=== PATIENT | male | born 1980 | race African-American/Black ===

== ENCOUNTER 2019-06-10 15:37 | Inpatient (IN) | payer SELFPAY ==
[2019-06-10] MEDS ORDERED: Sodium Chloride 0.9% 200 ML ONE (16:22)
[2019-06-10] MEDS ORDERED: Acetaminophen 500 MG TAB ONE (16:22)
[2019-06-10] MEDS ORDERED: Azithromycin 500 MG VIAL ONE (16:22)
[2019-06-10] MEDS ORDERED: cefTRIAXone\\ROCEPHIN 2 GM VIAL ONE (16:22)
--- NOTE | 2019-06-10 16:34 | RAD ---
TWO VIEW CHEST: HISTORY: Dyspnea. COMPARISON: 02/18/2019 FINDINGS: Mild cardiomegaly appears stable. There is a new infiltrate in the right peripheral lung and in the right lung base, obscuring portions of the right hemidiaphragm. Evidence of associated right effusio n. The left lung appears clear. IMPRESSION: Right effusion and right mid and lower lung infiltrates are noted and have occurred since the prior e xamination. POS: TPC
[2019-06-10 17:16] LABS: #Eosinphils 0.2 thou/uL (0.0-0.7); #Lymphocytes 0.7 thou/uL (1.20-3.40); #Monocytes 0.7 thou/uL (0.11-0.59); #Neutrophils 8.2 thou/uL (1.40-6.50); %Basophils 0.1 % (0.0-1.0); %Eosinophils 2.2 % (0.0-10.0); %Monocytes 6.7 % (0.0-10.0); Hemoglobin 8.7 g/dL (14.0-18.0); Mean Corpuscular HGB CONC 28.1 g/dL (32.0-36.0); Mean Corpuscular Hemoglobin 17.6 pg (27.0-31.0); Mean Corpuscular Volume 62.4 fL (78.0-98.0); Mean Platelet Volume 4.9 fL (7.4-10.4); Platelet Count 334 thou/uL (130-400); RBC Distribution Width 21.3 % (11.5-14.5); Red Blood Cell (RBC) Count 4.96 mill/uL (4.70-6.10); White Blood Cell (WBC) Count 9.8 thou/uL (4.8-10.8)
[2019-06-10 17:32] LABS: Anisocytosis MODERATE=16-30 cells (100X) (0-5/hpf); Elliptocytes SLIGHT = 2-5 cells (100X) (0-1/hpf); Hypochromia MODERATE=16-30 cells (100X) (0-5/hpf); MDiff Complete? YES; Microcytosis MODERATE=15-30 cells (100X) (0-5/hpf); Platelet Morphology Comment Appears Adequate; Polychromasia MODERATE = 3-4 cells (100X) (0-2/hpf); Reflex for Review?? YES; Schistocytes SLIGHT = 2-5 cells (100X) (0-1/hpf); Stomatocytes SLIGHT = 2-5 cells (100X) (0-1/hpf); Target Cells SLIGHT = 2-5 cells (100X) (0-1/hpf)
[2019-06-10 17:34] LABS: ALT (SGPT) 23 U/L (8-55); AST (SGOT) 24 U/L (5-34); Albumin 4.4 g/dL (3.5-5.0); Alkaline Phosphatase 87 U/L (40-150); Anion Gap 9 mmol/L (10-20); BUN (Urea Nitrogen) 6 mg/dL (8.9-20.6); Bilirubin, Total 0.7 mg/dL (0.2-1.2); Calc. Creatinine Clearance 0 mL/min (70-130); Calcium 9.5 mg/dL (7.8-10.44); Carbon Dioxide 31 mmol/L (22-29); Chloride 102 mmol/L (98-107); Estimated GFR-MDRD Greater than 90; Globulin 3.2 g/dL (2.4-3.5); Glucose 73 mg/dL (70-105); Protein, Total 7.6 g/dL (6.0-8.3); Sodium 138 mmol/L (136-145)
[2019-06-10] MEDS ORDERED: Ondansetron ODT 4 MG TAB PO PRN (20:36)
[2019-06-10] MEDS ORDERED: Ondansetron PF 4 MG/2 ML Vial IVP PRN (20:36)
[2019-06-10] MEDS: Acetaminophen 325 MG TAB PO PRN (21:30)
[2019-06-10 21:35] VITALS: BMI 42.6
[2019-06-11] MEDS: Acetaminophen 325 MG TAB PO PRN (04:40)
[2019-06-11] MEDS ORDERED: guaiFENesin 200 MG TAB PO PRN (05:01)
[2019-06-11 05:07] LABS: Anion Gap 12 mmol/L (10-20); BUN (Urea Nitrogen) 7 mg/dL (8.9-20.6); Calc. Creatinine Clearance 242 mL/min (70-130); Calcium 9.3 mg/dL (7.8-10.44); Carbon Dioxide 29 mmol/L (22-29); Chloride 100 mmol/L (98-107); Estimated GFR-MDRD Greater than 90; Glucose 91 mg/dL (70-105); Potassium 4.1 mmol/L (3.5-5.1); Sodium 137 mmol/L (136-145)
[2019-06-11] MEDS: Enoxaparin Sodium 40 MG/0.4 ML SYRINGE SC SCH (08:06)
--- NOTE | 2019-06-11 08:09 | HP ---
CODE STATUS: Full code. TIME OF EVALUATION: 8:40 p.m. CHIEF COMPLAINT: Cough. HISTORY OF PRESENT ILLNESS: A 39-year-old male patient, morbidly obese, history of sleep apnea, came to the hospital after having severe, gradually worsening shortness of breath and cough, associated with chest pain for the past 3 days, also associated with fever. Symptoms started insidiously and has been gradually getting worse. The patient has had severe episode of apnea and desaturation and for that reason, he was started on CPAP in the ED. REVIEW OF SYSTEMS: CONSTITUTIONAL: The patient has fever, chills, generalized weakness. RESPIRATORY: The patient has cough, sputum production, shortness of breath, and sleep apnea. CARDIOVASCULAR: No chest pain or palpitation. GASTROINTESTINAL: No nausea, vomiting, diarrhea, or abdominal pain. DISTRICT SALES COORDINATOR: No dizziness, headache, or feeling lightheaded. GENITOURINARY: No burning on urination. EXTREMITIES: No leg swelling. All other systems were negative except for the findings mentioned above. PAST MEDICAL HISTORY: As mentioned in the HPI. PAST SURGICAL HISTORY: No surgical history. ALLERGIES: NO KNOWN DRUG ALLERGIES. FAMILY HISTORY:Reviewed and non contributory for current presentation. REPORTED MEDICATIONS: None. PHYSICAL EXAMINATION: VITAL SIGNS: On presentation, blood pressure 155/95 with heart rate 95, respiratory rate was 23, temperature 99.4. Pain was 7/10. Oxygen saturation was 96% on room air. GENERAL: The patient is alert, oriented, not in acute distress. HEENT: Eyes, normal conjunctivae. Moist oral mucosa. Anicteric. No JVD. RESPIRATORY: Bilateral air entry is decreased, likely hard to hear due to obesity. Scattered wheezing. No rales on the left lung area. Symmetric expansion that is decreased. CARDIOVASCULAR: Normal rate, regular rhythm. No murmurs. No gallop. No edema. ABDOMEN: Soft. Normal bowel sounds. The patient is obese. MUSCULOSKELETAL: Baseline range of motion and strength. SKIN: Warm, intact. No pallor. No rash. No redness. Capillary refill seems to intact. NEURO: No evidence of any new focal weakness. Cranial nerves seems to be intact. PSYCH: The patient is in good mood. No anxiety. Optimal judgment. X-RAYS: Reviewed. The patient has right lower lobe pneumonia. LABORATORY DATA: Reviewed. The patient has white count of 9.8, hemoglobin 8.7, MCV 62, platelet count 334. Chemistry; sodium 138, potassium 4.0, chloride 102, carbon dioxide 31, anion gap 9, BUN 6, creatinine 0.8, GFR greater than 90, glucose 73, lactic acid 0.8, calcium 9.5, total bilirubin 0.7. LFTs were negative. Albumin to globulin ratio 1.4. ASSESSMENT AND PLAN: The patient will be placed in the hospital with the following medical problems. 1. Right lower lobe pneumonia seen on chest x-ray. The patient is started on antibiotics. We will follow cultures. Adjust treatment as needed. 2. Sleep apnea. The patient has severe episode of apnea with the patient has been placed on CPAP. We will continue for now. 3. Chronic microcytic anemia. We do not have previous labs. His hemoglobin is 8.7, MCV is very low. It might be due to chronic iron deficiency and might be a component of nondiagnosed thalassemia. The patient seems to be stable. This can be followed as outpatient. 4. Deep venous thrombosis prophylaxis. 5. Morbid obesity. Advised to lose weight. 6. Possible sepsis, pt had tachycardia, tachypnea, source pneumonia, treatment as above. Job ID: [id number] MTDD
--- NOTE | 2019-06-11 11:48 | PDOC.HOSPP ---
- Subjective Encounter Date: 06/11/19 Encounter Time: 08:45 Subjective: 39 y/o obese male with NILSON on CPAP treated for pneumonia about 3 months ago admitted with worsening cough and Fever associated with SOB and congestion. CXR showed right pleural effusion with infiltrates. Patient is a poor [facility]. There was a question about TB during last hospitalization at [facility]. - Objective Vital Signs & Weight: Vital Signs (12 hours) Temp Pulse Resp BP BP Pulse Ox 06/11/19 09:00 98.6 F 94 18 178/86 H 96 06/11/19 08:00 96 06/11/19 05:45 99.5 F 06/11/19 05:29 96 06/11/19 04:45 138/78 95 06/11/19 04:00 100.4 F H 96 21 H 06/11/19 00:00 99.5 F 91 21 H 140/69 98 Weight Weight 297 lb I&O: 06/10/19 06/11/19 06/12/19 06:59 06:59 06:59 Intake Total 450 Balance 450 Result Diagrams: 06/10/19 17:04 06/11/19 04:17 Additional Labs: Accuchecks 06/11/19 06/11/19 11:13 05:27 POC Glucose 119 H 98 ROS - Medication Medications: Active Medications Generic Name Dose Route Start Last Admin Trade Name Freq PRN Reason Stop Dose Admin Acetaminophen 650 mg 06/10/19 20:36 06/11/19 04:40 Tylenol PO 650 mg Q4H PRN Administration Headache/Fever/Mild Pain (1-3) Albuterol/Ipratropium 3 ml 06/10/19 21:50 06/11/19 05:29 Duoneb NEB 3 ml Q4H PRN Administration SOB/WHEEZE Enoxaparin Sodium 40 mg 06/11/19 09:00 06/11/19 08:06 Lovenox SC 40 mg 0900 TERRY Administration - Exam awake alert (morbidly obese) Eye: anicteric sclera ENT: normocephalic atraumatic, moist mucosa Neck: supple, symmetric Heart: RRR, no murmur Respiratory: no ronchi Respiratory - other findings: Fair air entry with scattered crackles both lung manley Gastrointestinal: soft, non-tender, non-distended, normal bowel sounds Gastrointestinal - other findings: Morbidly obese Extremities: no cyanosis, 1+ LE edema Extremeties - other findings: trace to mild bilateral leg edema Neurological: CN's grossly intact, no focal deficits Psychiatric: normal affect, A&O x 3 Hosp A/P (1) Pleural effusion on right Code(s): J90 - PLEURAL EFFUSION, NOT ELSEWHERE CLASSIFIED Status: Acute (2) Pneumonia Code(s): J18.9 - PNEUMONIA, UNSPECIFIED ORGANISM Status: Acute (3) Morbidly obese Code(s): E66.01 - MORBID (SEVERE) OBESITY DUE TO EXCESS CALORIES Status: Acute (4) NILSON on CPAP Code(s): G47.33 - OBSTRUCTIVE SLEEP APNEA (ADULT) (PEDIATRIC); Z99.89 - DEPENDENCE ON OTHER ENABLING MACHINES AND DEVICES Status: Acute (5) Microcytic anemia Code(s): D50.9 - IRON DEFICIENCY ANEMIA, UNSPECIFIED Status: Acute (6) 2nd degree atrioventricular block Code(s): I44.1 - ATRIOVENTRICULAR BLOCK, SECOND DEGREE Status: Acute (7) Bradycardia Code(s): R00.1 - BRADYCARDIA, UNSPECIFIED Status: Acute - Plan Continue IV antibiotics Get Iron chemistry Get BNP, troponin and echo Consult Pulmonary and Cardiology. Obr=jocelin medical record from [facility]
[2019-06-11 12:01] LABS: Iron 9 ug/dL (65-175); Iron Binding Capacity, Total 354 mcg/dL (261-462)
[2019-06-11 12:50] LABS: Troponin I 0.017 ng/mL (< 0.028)
--- NOTE | 2019-06-11 14:35 | CT ---
CT chest with IV contrast HISTORY: Chest pain. Dyspnea. Pleural fluid. FINDINGS: Only minimal fluid along the lateral aspect of the right lower chest. Adjacent pleural thic kening and scarring with mild underlying atelectasis of the lung parenchyma. Overlying this area of pleural scarring are multiple healing fractures involving the posterolateral aspect of right ribs 5 t hrough 10. No pneumothorax. Minimal scarring at the left posterolateral lung base. Heart is enlarged. No focal parenchymal lung mass. No mediastinal adenopathy. IMPRESSION: Opacity at the right lateral lung base actually represents atelectasis/scarring and pleur al thickening and/or scarring. There is only minimal fluid. Overlying healing right rib fractures. Prior trauma likely resulted in the volume loss and pleural scarring. No evidence of pneumothorax.
[2019-06-11] MEDS ORDERED: ISOVUE-370 76%-LOCM 1 ML ONE (15:48)
--- NOTE | 2019-06-11 16:37 | CON ---
DATE OF CONSULTATION: 06/11/2019 REASON FOR CONSULTATION: High-degree AV block. HISTORY OF PRESENT ILLNESS: Mr. Vargas is a pleasant 39-year-old -[place] gentleman, who comes to the hospital for shortness of breath and fevers. He was diagnosed with a right lower lobe pneumonia, started on IV antibiotics. During his stay, he was placed on a BiPAP for severe sleep apnea and he actually has been having a lot of episodes of what looks to be type 2 AV block, Mobitz type 2. These episodes have correlated with him dozing off to sleep. He denies any chest pain, tightness, or pressure. Denies any syncope or presyncope. His only issue is shortness of breath and is much better now. PAST MEDICAL HISTORY: 1. Morbid obesity. 2. Sleep apnea. 3. Type 2 diabetes versus prediabetes. OUTPATIENT MEDICATION: Metformin 5 mg b.i.d. ALLERGIES: NO KNOWN DRUG ALLERGIES. SOCIAL HISTORY: No alcohol, tobacco, or drugs. FAMILY HISTORY: Noncontributory. REVIEW OF SYSTEMS: A 12-point review of systems was done and was all negative unless stated in history of present illness. PHYSICAL EXAMINATION: VITAL SIGNS: Temperature 98.6, pulse 94, respiratory rate 18, sat 96% on room air, and blood pressure 170/86. GENERAL: Awake, alert, and oriented x3. No distress. HEENT: Normocephalic and atraumatic. NECK: Supple. LUNGS: Clear. CARDIOVASCULAR: S1 and S2. No S3 or S4. No murmurs. ABDOMEN: Soft. Positive bowel sounds. EXTREMITIES: Trace edema. SKIN: Warm and dry. LABORATORY DATA: Laboratory work was reviewed. CBC with a white count of 9, hemoglobin of 8.7, hematocrit of 30, and platelet count of 234. Chemistries are unremarkable. Iron is 9 with TIBC of 354, and percent saturation of 3, which is low. Troponin is negative x1. BNP is normal at 12. EKGs were reviewed. CT of the chest was reviewed. ASSESSMENT AND PLAN: 1. High-degree arteriovenous block. This is correlated with episodes of sleep apnea. 2. Sleep apnea. 3. Obesity. 4. Type 2 diabetes. PLAN: 1. No indication for pacemaker at this time. His episodes correlates with him dozing off falling asleep off his CPAP. 2. Most likely, if he loses weight and sleep apnea is gone, he would not have any more of these episodes. 3. Continue CPAP use. We would recommend he follow up with one of Pulmonary Critical Care to continued evaluation for his CPAP or also follow up with his primary care doctor for this. He understands verbalized understanding of this. He will do so. 4. No indication for pacemaker. Thank you for letting me take care of the patient. We will sign off. Please call with any questions. Job ID: [id number]
[2019-06-11] MEDS: cefTRIAXone\\ROCEPHIN 2 GM in Sodium Chloride 0.9% 100 ML IVPB SCH (16:57)
[2019-06-11] MEDS: Azithromycin 500 MG in Sodium Chloride 0.9% 250 ML 250 ML IVPB SCH (17:12)
--- NOTE | 2019-06-11 18:22 | CON ---
DATE OF CONSULTATION: 06/11/2019 CONSULTING PHYSICIAN: Brody Lomeli. REASON FOR CONSULTATION: Pleural effusion. HISTORY OF PRESENT ILLNESS: The patient is a 39-year-old male, who was sent to the hospital yesterday by an outlying primary care nurse practitioner. It is not clear to me if the patient was having any acute complaints at all other than presenting there for a checkup. He is very difficult to talk to. He speaks of himself in the third person. He is a very poor historian. From what I can gather sometime in the last 1 to 4 months, he was hospitalized at [facility] in [place] with a pneumonia on the right side. He had a thoracentesis performed with approximately 1 L of fluid removed. I do not have any type of records from that hospitalization. At the time of hospitalization, he was having pain on the right side. He says that pain has dissipated and he now only has an occasional cough. He also mentions that they were worried about tuberculosis, but does not expound beyond that. PAST MEDICAL HISTORY: 1. Obesity. 2. Pneumonia. PAST SURGICAL HISTORY: Thoracentesis. ALLERGIES: NONE. MEDICATIONS PRIOR TO ADMISSION: None. REVIEW OF SYSTEMS: 12-point review of systems, otherwise negative. FAMILY MEDICAL HISTORY: Unremarkable. PHYSICAL EXAMINATION: VITAL SIGNS: Temperature 98.6, has been as high as 99.5; pulse 94; respirations 18; O2 saturation 96%; and blood pressure 178/86. GENERAL: He is healthy-appearing, obese, and in no distress. HEENT: Unremarkable. NECK: No adenopathy or JVD. LUNGS: He has crackles in both bases. Slightly diminished breath sounds on the right compared to left. Very slight dullness to percussion. Anteriorly is clear. CARDIAC: S1 and S2. Regular. ABDOMEN: Obese, soft, nontender. EXTREMITIES: No clubbing, cyanosis, or edema. LABORATORY DATA: Sodium 137, potassium 4.1, chloride 100, CO2 of 29, BUN 7, creatinine 0.7, and glucose 91. White blood cell count 9.8, hematocrit 40.9, and platelet count 334. His x-ray shows a little effusion on the right. It looks like it could be loculated given how it is tracking up the right side on an upright film. ASSESSMENT: 1. Right pleural effusion-not sure the chronicity of the effusion. 2. Poor historian. 3. Question pneumonitis. PLAN: 1. We need old medical records from [facility]. 2. CT of the chest. Based on the x-ray, what I am seeing, looks a little small to intervene with thoracentesis. 3. Empiric antibiotics for the time being. 4. Check echocardiogram. Job ID: [id number]
[2019-06-12 05:02] LABS: #Eosinphils 0.2 thou/uL (0.0-0.7); #Lymphocytes 1.1 thou/uL (1.20-3.40); #Monocytes 0.7 thou/uL (0.11-0.59); #Neutrophils 2.8 thou/uL (1.40-6.50); %Basophils 0.8 % (0.0-1.0); %Eosinophils 4.1 % (0.0-10.0); %Lymphocytes 22.8 % (21.0-51.0); %Neutrophils 58.3 % (42.0-75.0); Hemoglobin 8.6 g/dL (14.0-18.0); Mean Corpuscular HGB CONC 27.7 g/dL (32.0-36.0); Mean Corpuscular Hemoglobin 17.6 pg (27.0-31.0); Mean Corpuscular Volume 63.5 fL (78.0-98.0); Platelet Count 353 thou/uL (130-400); RBC Distribution Width 20.9 % (11.5-14.5); White Blood Cell (WBC) Count 4.8 thou/uL (4.8-10.8)
[2019-06-12 05:15] LABS: Anion Gap 11 mmol/L (10-20); BUN (Urea Nitrogen) 9 mg/dL (8.9-20.6); Calc. Creatinine Clearance 236 mL/min (70-130); Calcium 8.9 mg/dL (7.8-10.44); Carbon Dioxide 31 mmol/L (22-29); Chloride 104 mmol/L (98-107); Estimated GFR-MDRD Greater than 90; Glucose 103 mg/dL (70-105); Potassium 4.2 mmol/L (3.5-5.1); Sodium 142 mmol/L (136-145)
[2019-06-12] MEDS: Enoxaparin Sodium 40 MG/0.4 ML SYRINGE SC SCH (08:47)
--- NOTE | 2019-06-12 12:12 | PRG ---
DATE OF SERVICE: 06/12/2019 SUBJECTIVE: The patient is doing well, has no complaints. Apparently, he had some issues with heart block, that is related to sleep apnea that resolves with use of CPAP. He tells me he has a CPAP at home. He had a CT of the chest yesterday, which showed some old right rib fractures and some scarring around the periphery of his right lung. An echo showed diastolic cardiac dysfunction with an EF of 50% to 55% with grade 2/3 diastolic dysfunction. OBJECTIVE: VITAL SIGNS: His O2 saturation is 96% on room air, pulse 86, blood pressure 136/73. HEENT: Unremarkable. NECK: No JVD. CHEST: Clear anteriorly bilaterally. CARDIAC: S1 and S2. Regular. ABDOMEN: Soft. EXTREMITIES: No edema. ASSESSMENT: 1. My best guess is the patient had a pleural effusion in the past after the rib fractures. There does not appear to be anything acute going on in the chest at this time. 2. Obstructive sleep apnea. 3. Heart block related to obstructive sleep apnea. 4. No evidence of pneumonia. RECOMMENDATIONS: 1. Continue CPAP use at home. 2. Needs no further workup for the pleural effusion. 3. Follow up with his primary care provider. Job ID: [id number]
--- NOTE | 2019-06-12 15:47 | PDOC.HOSPP ---
- Subjective Encounter Date: 06/12/19 Encounter Time: 15:44 Subjective: 39 y/o obese male with NILSON on CPAP treated for pneumonia about 3 months ago now admitted with worsening cough and fever associated with SOB and congestion. CXR showed right pleural effusion with infiltrates. Further evaluation showed Right healed fracture as well as lateral right lung base opacity. There was a question about TB during last hospitalization at [facility]. Patient is coughing up more sputum but otherwise reports feeling better. - Objective Vital Signs & Weight: Vital Signs (12 hours) Temp Pulse Resp BP Pulse Ox 06/12/19 12:34 98.6 F 76 20 140/86 97 06/12/19 07:45 98.6 F 86 18 136/73 96 Weight Weight 289 lb 11.2 oz I&O: 06/11/19 06/12/19 06/13/19 06:59 06:59 06:59 Intake Total 450 1320 Output Total 1300 Balance 450 20 Result Diagrams: 06/12/19 04:22 06/12/19 04:22 Additional Labs: Accuchecks 06/12/19 06/12/19 06/11/19 11:07 05:16 20:25 POC Glucose 168 H 111 H 81 06/11/19 16:44 POC Glucose 101 ROS - Medication Medications: Active Medications Generic Name Dose Route Start Last Admin Trade Name Bertrandq PRN Reason Stop Dose Admin Acetaminophen 650 mg 06/10/19 20:36 06/11/19 04:40 Tylenol PO 650 mg Q4H PRN Administration Headache/Fever/Mild Pain (1-3) Albuterol/Ipratropium 3 ml 06/10/19 21:50 06/11/19 05:29 Duoneb NEB 3 ml Q4H PRN Administration SOB/WHEEZE Enoxaparin Sodium 40 mg 06/11/19 09:00 06/12/19 08:47 Lovenox SC 40 mg 0900 TERRY Administration Ceftriaxone Sodium 2 gm/ 100 mls @ 200 mls/hr 06/11/19 17:00 06/11/19 16:57 Sodium Chloride IVPB 100 mls Q24HR TERRY Administration Azithromycin 500 mg/ Sodium 250 mls @ 250 mls/hr 06/11/19 18:00 06/11/19 17: 12 Chloride IVPB 250 mls Q24HR TERRY Administration - Exam awake alert General - other findings: obese Eye: PERRL, anicteric sclera ENT: normocephalic atraumatic, moist mucosa Neck: supple, no JVD Heart: RRR Respiratory: no ronchi Respiratory - other findings: Fair air entry with some transmitted sound bilaterally Gastrointestinal: soft, non-tender, normal bowel sounds Gastrointestinal - other findings: obese Extremities: no cyanosis Extremeties - other findings: Trace bilateral leg edema Neurological: CN's grossly intact, no focal deficits Psychiatric: normal affect, A&O x 3 Hosp A/P (1) Pneumonia Code(s): J18.9 - PNEUMONIA, UNSPECIFIED ORGANISM Status: Acute (2) Pleural effusion on right Code(s): J90 - PLEURAL EFFUSION, NOT ELSEWHERE CLASSIFIED Status: Acute (3) Morbidly obese Code(s): E66.01 - MORBID (SEVERE) OBESITY DUE TO EXCESS CALORIES Status: Acute (4) NILSON on CPAP Code(s): G47.33 - OBSTRUCTIVE SLEEP APNEA (ADULT) (PEDIATRIC); Z99.89 - DEPENDENCE ON OTHER ENABLING MACHINES AND DEVICES Status: Acute (5) Microcytic anemia Code(s): D50.9 - IRON DEFICIENCY ANEMIA, UNSPECIFIED Status: Acute (6) 2nd degree atrioventricular block Code(s): I44.1 - ATRIOVENTRICULAR BLOCK, SECOND DEGREE Status: Acute (7) Bradycardia Code(s): R00.1 - BRADYCARDIA, UNSPECIFIED Status: Acute (8) Iron deficiency anemia Code(s): D50.9 - IRON DEFICIENCY ANEMIA, UNSPECIFIED Status: Acute (9) Diabetes mellitus Code(s): E11.9 - TYPE 2 DIABETES MELLITUS WITHOUT COMPLICATIONS Status: Acute (10) Diastolic heart failure Code(s): I50.30 - UNSPECIFIED DIASTOLIC (CONGESTIVE) HEART FAILURE Status: Acute (11) Pulmonary HTN Code(s): I27.20 - PULMONARY HYPERTENSION, UNSPECIFIED Status: Acute - Plan Continue IV antibiotics Replete body iron with IV iron. Start sliding scale insulin for hyperglycemia Consult GI for iron deficiency anemia Appreciate Pulmonary and Cardiology input. Get sputum culture Awaiting medical record from [facility]
[2019-06-12] MEDS ORDERED: Dextrose 50% Abboject 50 ML SYRINGE SLOW IVP PRN (15:50)
[2019-06-12] MEDS ORDERED: Dextrose 5% in Water 1,000 ML IV PRN (15:50)
[2019-06-12] MEDS ORDERED: HumaLOG 300 UNITS/3 ML VIAL SC PRN (15:50)
[2019-06-12] MEDS: cefTRIAXone\\ROCEPHIN 2 GM in Sodium Chloride 0.9% 100 ML IVPB SCH (16:50)
[2019-06-12] MEDS: Azithromycin 500 MG in Sodium Chloride 0.9% 250 ML 250 ML IVPB SCH (19:13)
[2019-06-12] MEDS: guaiFENesin ER 600 MG TAB PO SCH (20:30)
[2019-06-13 06:59] LABS: Hemoglobin A1c 6.3 % (4.0-6.0)
[2019-06-13] MEDS ORDERED: GoLYTELY 4,000 ml Bottle PO SCH (07:45)
[2019-06-13] MEDS: Iron, Sodium Ferric Gluconate 250 MG in Sodium Chloride 0.9% 100 ML IVPB SCH (08:53)
[2019-06-13] MEDS: guaiFENesin ER 600 MG TAB PO SCH ×2 (08:54→20:01)
[2019-06-13] MEDS: Enoxaparin Sodium 40 MG/0.4 ML SYRINGE SC SCH (08:54)
[2019-06-13] MEDS ORDERED: Bisacodyl 5 MG TAB PO SCH (12:30)
--- NOTE | 2019-06-13 13:57 | PDOC.HOSPP ---
- Subjective Encounter Date: 06/13/19 Encounter Time: 09:56 Subjective: 39 y/o obese male with NILSON on CPAP treated for pneumonia about 3 months ago now admitted with worsening cough and fever associated with SOB and congestion. CXR showed right pleural effusion with infiltrates. Further evaluation with CT chest showed right healed fracture as well as lateral right lung base opacity. Still having intermittent pauses. Feeling better otherwise. - Objective Vital Signs & Weight: Vital Signs (12 hours) Temp Pulse Resp BP BP Pulse Ox 06/13/19 12:00 97.8 F 81 24 H 175/95 H 96 06/13/19 08:00 98.6 F 80 19 175/94 H 95 06/13/19 03:37 98.5 F 86 18 148/77 H 96 Weight Weight 289 lb 11.2 oz I&O: 06/12/19 06/13/19 06/14/19 06:59 06:59 06:59 Intake Total 1320 500 Output Total 1300 Balance 20 500 Result Diagrams: 06/12/19 04:22 06/12/19 04:22 Additional Labs: Accuchecks 06/13/19 06/13/19 06/12/19 12:06 05:34 20:25 POC Glucose 96 103 91 06/12/19 17:04 POC Glucose 120 H ROS - Medication Medications: Active Medications Generic Name Dose Route Start Last Admin Trade Name Freq PRN Reason Stop Dose Admin Acetaminophen 650 mg 06/10/19 20:36 06/11/19 04:40 Tylenol PO 650 mg Q4H PRN Administration Headache/Fever/Mild Pain (1-3) Albuterol/Ipratropium 3 ml 06/10/19 21:50 06/11/19 05:29 Duoneb NEB 3 ml Q4H PRN Administration SOB/WHEEZE Bisacodyl 20 mg 06/13/19 12:30 06/13/19 12:48 Dulcolax PO 06/13/19 14:30 20 mg NOW TERRY Administration Enoxaparin Sodium 40 mg 06/11/19 09:00 06/13/19 08:54 Lovenox SC 40 mg 0900 TERRY Administration Guaifenesin 600 mg 06/12/19 21:00 06/13/19 08:54 Mucinex PO 600 mg Q12HR TERRY Administration Ceftriaxone Sodium 2 gm/ 100 mls @ 200 mls/hr 06/11/19 17:00 06/12/19 16:50 Sodium Chloride IVPB 100 mls Q24HR TERRY Administration Azithromycin 500 mg/ Sodium 250 mls @ 250 mls/hr 06/11/19 18:00 06/12/19 19: 13 Chloride IVPB 250 mls Q24HR TERRY Administration Ferric Sodium Gluconate 120 mls @ 60 mls/hr 06/13/19 09:00 06/13/19 08:53 Complex 250 mg/ Sodium IVPB 06/16/19 09:01 120 mls Chloride DAILY TERRY Administration Polyethylene Glycol/Electrolytes 4,000 ml 06/13/19 07:45 06/13/19 08:29 Golytely PO 06/13/19 21:00 4,000 ml NOW TERRY Administration Sodium Chloride 10 ml 06/12/19 21:00 06/13/19 08:54 Flush - Normal Saline IVF 10 ml Q12HR TERRY Administration - Exam awake alert General - other findings: obese Eye: anicteric sclera ENT: normocephalic atraumatic Neck: supple, symmetric Heart: RRR Respiratory: no ronchi Respiratory - other findings: fair air entry with few transmitted sound. ? crackles Gastrointestinal: soft, non-tender, normal bowel sounds Gastrointestinal - other findings: obese Extremities: no cyanosis Extremeties - other findings: trace leg edema Neurological: CN's grossly intact, no focal deficits Psychiatric: normal affect, A&O x 3 Hosp A/P (1) Pneumonia Code(s): J18.9 - PNEUMONIA, UNSPECIFIED ORGANISM Status: Acute (2) Pleural effusion on right Code(s): J90 - PLEURAL EFFUSION, NOT ELSEWHERE CLASSIFIED Status: Acute (3) Morbidly obese Code(s): E66.01 - MORBID (SEVERE) OBESITY DUE TO EXCESS CALORIES Status: Acute (4) NILSON on CPAP Code(s): G47.33 - OBSTRUCTIVE SLEEP APNEA (ADULT) (PEDIATRIC); Z99.89 - DEPENDENCE ON OTHER ENABLING MACHINES AND DEVICES Status: Acute (5) Microcytic anemia Code(s): D50.9 - IRON DEFICIENCY ANEMIA, UNSPECIFIED Status: Acute (6) 2nd degree atrioventricular block Code(s): I44.1 - ATRIOVENTRICULAR BLOCK, SECOND DEGREE Status: Acute (7) Bradycardia Code(s): R00.1 - BRADYCARDIA, UNSPECIFIED Status: Acute (8) Iron deficiency anemia Code(s): D50.9 - IRON DEFICIENCY ANEMIA, UNSPECIFIED Status: Acute (9) Diabetes mellitus Code(s): E11.9 - TYPE 2 DIABETES MELLITUS WITHOUT COMPLICATIONS Status: Acute (10) Diastolic heart failure Code(s): I50.30 - UNSPECIFIED DIASTOLIC (CONGESTIVE) HEART FAILURE Status: Acute (11) Pulmonary HTN Code(s): I27.20 - PULMONARY HYPERTENSION, UNSPECIFIED Status: Acute - Plan Continue IV antibiotics Replete body iron with IV iron. For GI endoscopy today Continue sliding scale insulin for hyperglycemia Awaiting sputum culture Awaiting medical record from [facility]
[2019-06-13] MEDS ORDERED: Lidocaine Viscous Sol 2% 15 ml UD Cup ONE (14:28)
[2019-06-13] MEDS ORDERED: Ketamine 50 MG/ML (10ML VIAL) ONE (14:51)
[2019-06-13] MEDS ORDERED: Labetalol HCl 100 MG/20 ML VIAL ONE (15:47)
[2019-06-13] MEDS ORDERED: hydrALAZINE 20 MG/ML VIAL ONE (16:30)
--- NOTE | 2019-06-13 16:31 | OP ---
DATE OF PROCEDURE: 06/13/2019 OPERATIVE PROCEDURE: Esophagogastroduodenoscopy with biopsy. PREOPERATIVE DIAGNOSIS: A 39-year-old male with microcytic anemia, undergoing esophagogastroduodenoscopy. POSTOPERATIVE DIAGNOSES: Normal exam. Random biopsies obtained in the descending duodenum to rule out celiac disease. DESCRIPTION OF PROCEDURE: The patient was placed on his left lateral position and was given sedation by Anesthesia Department. A Pentax video gastroscope under direct vision passed down the oropharynx, past the GE junction into the stomach and subsequently into the descending duodenum. The mucosa appears normal throughout the upper GI tract. In the esophagus, no pathology seen. In the GE junction, no pathology seen. Retroflexion failed to show any pathology in fundus or cardia. In the gastric body, gastric antrum, no lesion seen. In the incisura angularis, no lesions. In the duodenal bulb, descending duodenum, no pathology seen. Random biopsies obtained in the descending duodenum. The stomach decompressed and the scope removed. OVERALL IMPRESSION: Although, the patient has iron deficiency anemia. Upon endoscopy, no pathology seen. RECOMMENDATIONS: 1. Iron supplement. 2. Follow up hemoglobin and hematocrit. 3. If anemia persists, consider Hematology input. Job ID: [id number]
[2019-06-13] MEDS ORDERED: PROPOFOL 200 MG/20 ML VIAL ONE (16:44)
[2019-06-13] MEDS ORDERED: Esmolol 100 MG/10 ML VIAL ONE (16:44)
[2019-06-13] MEDS ORDERED: Albuterol Sulfate HFA (OR ONLY) ONE (17:03)
[2019-06-13] MEDS: cefTRIAXone\\ROCEPHIN 2 GM in Sodium Chloride 0.9% 100 ML IVPB SCH (17:27)
[2019-06-13] MEDS: Azithromycin 500 MG in Sodium Chloride 0.9% 250 ML 250 ML IVPB SCH (17:55)
--- NOTE | 2019-06-13 22:13 | OP ---
DATE OF PROCEDURE: 06/13/2019 PROCEDURE PERFORMED: Colonoscopy. PREOPERATIVE DIAGNOSIS: A 39-year-old male with microcytic anemia, undergoing colonoscopy. POSTOPERATIVE DIAGNOSIS: Normal colonoscopy except for hemorrhoids. He had some retained stool in the right colon and also some parts of left colon. However, oral exam does not show any pathology except for hemorrhoids. DESCRIPTION OF PROCEDURE: The patient was placed on his left lateral position and was given sedation by Anesthesia Department. A rectal exam was done. A rigid scope was advanced into the rectum. No lesions were found on rectal exam. A Pentax video colonoscope was introduced into the rectum and advanced all the way to the cecum. The prep was actually very good. The mucosa appeared normal. However, he had pockets of solid stool and also what appears to be leafy material in the colon. The ileocecal area, cecum, ascending colon, no pathology. On withdrawal of scope in the cecum to ascending colon, hepatic flexure, no pathology seen. The transverse colon, splenic flexure, descending colon, sigmoid colon, no lesion seen. Rectal hemorrhoids. Job ID: [id number]
[2019-06-14 05:40] LABS: #Eosinphils 0.2 thou/uL (0.0-0.7); #Lymphocytes 1.5 thou/uL (1.20-3.40); #Monocytes 0.6 thou/uL (0.11-0.59); #Neutrophils 5.5 thou/uL (1.40-6.50); %Basophils 0.5 % (0.0-1.0); %Lymphocytes 18.5 % (21.0-51.0); %Monocytes 7.6 % (0.0-10.0); %Neutrophils 70.3 % (42.0-75.0); Hemoglobin 9.1 g/dL (14.0-18.0); Mean Corpuscular Hemoglobin 17.2 pg (27.0-31.0); Mean Corpuscular Volume 61.5 fL (78.0-98.0); Mean Platelet Volume 5.2 fL (7.4-10.4); Platelet Count 397 thou/uL (130-400); RBC Distribution Width 21.3 % (11.5-14.5); Red Blood Cell (RBC) Count 5.28 mill/uL (4.70-6.10); White Blood Cell (WBC) Count 7.8 thou/uL (4.8-10.8)
[2019-06-14 05:50] LABS: Anion Gap 15 mmol/L (10-20); BUN (Urea Nitrogen) 8 mg/dL (8.9-20.6); Calc. Creatinine Clearance 236 mL/min (70-130); Calcium 9.8 mg/dL (7.8-10.44); Carbon Dioxide 24 mmol/L (22-29); Chloride 106 mmol/L (98-107); Estimated GFR-MDRD Greater than 90; Glucose 105 mg/dL (70-105); Potassium 3.9 mmol/L (3.5-5.1); Sodium 141 mmol/L (136-145)
[2019-06-14] MEDS ORDERED: Chlorthalidone 25 MG TAB PO SCH (09:00)
[2019-06-14] MEDS: Enoxaparin Sodium 40 MG/0.4 ML SYRINGE SC SCH (09:02)
[2019-06-14] MEDS: guaiFENesin ER 600 MG TAB PO SCH (09:02)
[2019-06-14] MEDS: Iron, Sodium Ferric Gluconate 250 MG in Sodium Chloride 0.9% 100 ML IVPB SCH (11:07)
--- NOTE | 2019-06-14 11:11 | DIS ---
DATE OF ADMISSION: 06/10/2019 DATE OF DISCHARGE: 06/14/2019 PRIMARY CARE PHYSICIAN: Tin Cee. DISCHARGE DIAGNOSES: 1. Right-sided bacterial pneumonia. 2. Right-sided pleural effusion. 3. Second-degree AV block. 4. Bradycardia. 5. Morbid obesity. 6. Obstructive sleep apnea, on CPAP. 7. Iron deficiency anemia. 8. Diabetes mellitus type 2. 9. Diastolic heart failure. 10. Pulmonary hypertension. 11. Possible sepsis. present on admission. PROCEDURES PERFORMED: Esophagogastroduodenoscopy and colonoscopy. CONSULTS: 1. Gastroenterology. 2. Cardiology. 3. Pulmonology. HOSPITAL COURSE: A 39-year-old obese male with known history of obstructive sleep apnea, on CPAP; status post recent pneumonic process about 3 months ago treated at [facility], who was now admitted with worsening cough and fever associated with shortness of breath and congestion. Chest x-ray showed right pleural effusion and infiltrate. Impression of right-sided pneumonia was made and the patient was started on broad-spectrum antibiotics. Pulmonology consult was obtained and further evaluation with CT scan of the chest showed right healed fracture as well as lateral lung base opacity. Hospital course was complicated by development of AV block and bradycardia noticed on telemetry. Cardiology consult was obtained and upon review, but it was felt that this is related to obstructive sleep apnea and on CPAP mostly while the patient was asleep. No pacemaker placement was recommended rather the patient was advised to be compliant with CPAP. It was also noticed that the patient has microcytic anemia and further evaluation confirmed iron deficiency. The patient was treated with IV iron. GI consult was obtained and the patient was further evaluated with upper and lower endoscopy, which however, was negative for any pathology. The patient remained stable and was subsequently discharged to complete antibiotic therapy. Of note, the patient was noted to have pulmonary hypertension and diastolic heart dysfunction on echocardiogram obtained during this hospitalization. PHYSICAL EXAMINATION: VITAL SIGNS: Temperature 98.3, pulse 83, respiratory rate 16, SpO2 of 96% on room air, blood pressure is 142/72. GENERAL: Obese male, in no obvious distress. Afebrile. Anicteric. Acyanotic. HEENT: Normocephalic, atraumatic. Pupils are reacting to light. Oral mucosa is moist. CARDIOVASCULAR: Regular rhythm and rate with normal heart sounds 1 and 2. RESPIRATORY: Fair air entry with some transmitted sounds. No obvious rhonchi were appreciated. GI: Abdomen is obese, soft, nontender, nondistended with normal bowel sounds. EXTREMITIES: Trace bilateral leg edema noted. Distal pulses are palpable. NEUROLOGIC: Conscious, alert, oriented x3 with appropriate mental status. Cranial nerves 2 through 12 are grossly intact. The patient moves all extremities. The patient is ambulant. DISCHARGE DISPOSITION: Home. DISCHARGE CONDITION: Improved. DISCHARGE MEDICATIONS: 1. Metformin 500 mg p.o. b.i.d. with meals. 2. Guaifenesin 600 mg p.o. b.i.d. for 10 days. 3. Levofloxacin 750 mg p.o. daily for 10 days. 4. Chlorthalidone 25 mg p.o. daily. 5. Ferrous sulfate 325 mg p.o. b.i.d. 6. Lisinopril 20 mg p.o. daily. TIME SPENT: This discharge took more than 36 minutes. Job ID: [id number] MTDD
--- NOTE | 2019-06-14 11:20 | CON ---
DATE OF CONSULTATION: 06/12/2019 REASON FOR CONSULTATION: Anemia without any history of GI blood loss. HISTORY OF PRESENT ILLNESS: Dre Vargas is a very pleasant 39-year-old male, hospitalized because of mild dyspnea and also chest x-ray showing right lower lobe pneumonia. In this admission, he had been seen by Dr. Olegario Oliver for Pulmonary Service and also by Dr. Young. the patient is awake, alert, oriented. He is very comfortable. He is not in distress. He denies any chest pain or dyspnea. He has mild coughing. He states he is feeling better, he really wants to go home. The patient was found to have anemia, which is moderate. On 06/10/2019, a CBC showed hemoglobin of 8.7, hematocrit 30.9. Today, it is 8.6 and 31.1. His MCV is low at 62.4, indicative of iron deficiency. The patient has really no GI symptoms. Denies abdominal pain, nausea, or vomiting. No history of hematochezia or any melena. His bowel movements are fairly regular. He has a stool daily or every other day. He does not strain during bowel movement. The patient tells me when he wipes, he sees blood on the tissue. Otherwise, he has not had any blood in the stool. No history of any hematuria. No history of any bleeding from the gums or nose bleeding. He has no abdominal pain. He has no other GI symptoms at all. ALLERGIES: NONE. SOCIAL HISTORY: The patient is a smoker. He smokes 1/2 packet of cigarettes per day. Does not drink alcohol. MEDICAL ILLNESSES: 1. Morbid obesity. 2. Sleep apnea, on CPAP. 3. Type 2 diabetes mellitus._. 5. Recent hospital admission at [facility] in [place] and had thoracentesis done. He was told to have pneumonia at that time. 6. History of anemia . FAMILY HISTORY: Mother has COPD. _ MEDICATION LIST: Reviewed. REVIEW OF SYSTEMS: Ten-point system reviewed; CONSTITUTIONAL: No history of weight loss. No fever. No night sweats. His exercise tolerance is very good. HEENT: No chronic headache. No syncope. Eyes; no impaired vision or diplopia. Ears; no ear discharge or pain. No hearing loss. Throat; no sore throat, no dysphagia. CARDIOVASCULAR SYSTEM: History of mild chest pain, right side. History of mild coughing. No history of any fever. No dyspnea, orthopnea, or PND. GI AND : Not relevant. NEUROPSYCHIATRY: Unremarkable. ENDOCRINE: Unremarkable. PHYSICAL EXAMINATION: GENERAL: The patient is obese, appears very comfortable. He is awake, alert, and communicative. VITAL SIGNS: Afebrile. Pulse is 88, blood pressure 147/77. HEENT: Conjunctivae are clear. NECK: Supple. No adenitis or thyromegaly noted. CARDIOVASCULAR SYSTEM: First and second heart sounds are normal. LUNGS: He has scattered rhonchi in both sides. Also mild wheezing. ABDOMEN: Soft and nontender. No organomegaly or masses. Bowel sounds normal. EXTREMITIES: Reveal no edema. LABORATORY DATA: Show microcytic anemia. Hemoglobin is 8.7, hematocrit 30.9, MCV is low at 62.4, platelet count 334,000. Polymorphs 84, lymphocytes 7, monocytes 6.7. Chemistry panel, basically BMP is normal. Glucose is 103, calcium is 8.9, ferritin is 38.7, which is actually normal . X-ray shows right lower lobe infiltrate and small effusion. CLINICAL IMPRESSION: 1. A 39-year-old male with microcytic anemia. There has been reported anemia from before and he was placed on iron supplements. He has no hematochezia or melena. No history of blood loss. 2. Obesity. 3. Sleep apnea. 4. Diabetes. 5. Right pleural effusion and pneumonia, on antibiotics. RECOMMENDATION: Obtain stool for occult blood. If the occult blood comes positive, we may consider endoscopic studies. Job ID: [id number] [facility]
[2019-06-14 13:57] VITALS: BP 164/90; TEMP 98
--- NOTE | 2019-06-16 08:46 | PQF ---
[employer] Winform rosy Dobbins PATRICE CHENG [id number] CLINICAL DOCUMENTATION CLARIFICATION FORM: POST DISCHARGE Addendum to original discharge summary date: ____ Late entry note date: __ DATE: 06/16/2019 ATTN: PATRICE CHENG Please exercise your independent, professional judgment in responding to the clarification form. Clinical indicators are provided on the bottom of this form for your review Please check appropriate box(s) to clarify if the following diagnosis has been ruled in or ruled out: Sepsis (CDI/Coding list diagnosis here) [ ] Ruled in diagnosis [ ] Continue to treat [ ] Resolved [ ] Ruled out diagnosis [ ] Cannot rule out diagnosis [X ] Other diagnosis Possible sepsis [ ] Unable to determine In addition, please specify: Present on Admission (POA): [X ] Yes [ ] No [ ] Unable to determine For continuity of documentation, please document condition throughout progress notes and discharge summary. Thank You. CLINICAL INDICATORS - SIGNS / SYMPTOMS / LABS Respiration rate-23 Documented in ED physician record on 06/10/19 by MD Thomas Aaron Fever - Documented in H&P on 06/10/19 by Tony Lewis MD Right lower LobePneumonia - Documented in H&P on 06/10/19 by Tony Lewis MD Possible sepsis - Documented in H&P on 06/10/19 by Tony Lewis MD Pt had tachycardia, tachypnea - Documented in H&P on 06/10/19 by Tony Lewis MD RISK FACTORS TSecond degree AV block - Documented in Discharge summary on 06/14/19 by PATRICE CHENG Diastolic Heart failure - Documented in Discharge summary on 06/14/19 by PATRICE CHENG Pulmonary HTN - Documented in Discharge summary on 06/14/19 by PATRICE CHENG TREATMENTS The patient started antibiotics - Documented in H&P on 06/10/19 by Tony Lewis MD Continue IV antibiotics - Documented in Hospital PNs on 06/11/19 by PATRICE CHENG [employer] Winform Viewer (This form is maintained as a part of the permanent medical record) 2014 [employer]. All Rights Reserved [email or web address] [not provided] MTDD
== END 2019-06-14 14:46 | disposition home or self-care (01) | DRG 194 ==
LOC: ERS 15:37 → 2NO 20:51
PROVIDERS: ADMIT Internal Medicine; ATTEND Internal Medicine
PROC: 0DJD8ZZ Inspection of Lower Intestinal Tract, Via Natural or Artificial Opening Endoscopic (ICD-10-PCS; principal; 2019-06-13)
PROC: 0DB98ZX Excision of Duodenum, Via Natural or Artificial Opening Endoscopic, Diagnostic (ICD-10-PCS; 2019-06-13)
DX: J18.1 Lobar pneumonia, unspecified organism (principal); Z68.41 Body mass index [BMI] 40.0-44.9, adult; I50.30 Unspecified diastolic (congestive) heart failure; J91.8 Pleural effusion in other conditions classified elsewhere; E66.01 Morbid (severe) obesity due to excess calories; D50.9 Iron deficiency anemia, unspecified; G47.33 Obstructive sleep apnea (adult) (pediatric); Z99.81 Dependence on supplemental oxygen; I44.1 Atrioventricular block, second degree; Z79.84 Long term (current) use of oral hypoglycemic drugs; I27.20 Pulmonary hypertension, unspecified; K64.8 Other hemorrhoids
CPT/HCPCS: 36415; 36416; 71046; 71260; 80048; 80053; 82274; 82728; 83036; 83540; 83550; 83605; 83880; 84484; 85025; 85060; 87040; 87070; 87205; 88305; 93306; 94640; 94660; 96365; 96367; J0360; J0456; J0696; J1650; J2704; J2916; J3490; J7050; J7620; Q9966

== ENCOUNTER 2020-05-12 23:43 | Inpatient (IN) | payer SELFPAY ==
[2020-05-13 00:51] LABS: Anion Gap 18 mmol/L (10-20); BUN (Urea Nitrogen) 16 mg/dL (8.9-20.6); Calc. Creatinine Clearance 0 mL/min (70-130); Calcium 10.3 mg/dL (7.8-10.44); Carbon Dioxide 24 mmol/L (22-29); Chloride 107 mmol/L (98-107); Estimated GFR-MDRD 63; Sodium 144 mmol/L (136-145)
[2020-05-13 00:54] LABS: Glucose 716 mg/dL (70-105)
[2020-05-13] MEDS ORDERED: HUMULIN R 100 UNITS in Sodium Chloride 0.9% 100 ML IVPB SCH (01:15)
[2020-05-13] MEDS ORDERED: Ondansetron PF 4 MG/2 ML Vial IVP PRN (02:07)
[2020-05-13] MEDS ORDERED: Ondansetron ODT 4 MG TAB SL PRN (02:07)
[2020-05-13] MEDS ORDERED: Sodium Chloride 0.9% 1,000 ML IV SCH ×2 (02:07→03:46)
[2020-05-13 02:38] VITALS: BMI 38.7
--- NOTE | 2020-05-13 04:27 | HP ---
REASON FOR ADMISSION: Confusion. HISTORY OF PRESENT ILLNESS: This is a 40-year-old male patient, who presented to the emergency room, found to be confused. Then, blood work revealed a glucose level of 1600 mg/dL. He was started on an insulin drip. He was subsequently transferred to our emergency room and currently he is on IMCU. His glucose did improve and it is around 400. He is receiving aggressive fluid hydration. Patient did report to me that he is not very compliant with his insulin regimen and he reported to the nursing team that he has been eating a lot and drinking soda. I did review his records and I see that he was admitted in November and he was diagnosed with community-acquired pneumonia. PAST MEDICAL HISTORY: 1. High blood pressure. 2. Diabetes, type 2. 3. Obstructive sleep apnea, on CPAP. 4. Diastolic heart failure. 5. Iron-deficiency anemia. 6. Morbid obesity. 7. COPD. 8. Pulmonary hypertension. ALLERGIES: NO NOTE OF ANY DRUG ALLERGIES. FAMILY HISTORY: Reviewed, found to be noncontributory. REVIEW OF SYSTEMS: All systems reviewed, except the above mentioned, found to be negative. PHYSICAL EXAMINATION: GENERAL: Awake, alert, oriented, does not appear in distress, very sleepy, poor historian. VITAL SIGNS: His blood pressure is 132/92, heart rate of 102, saturating 96% on room air, and temperature is 98.1. HEENT: Head is nontraumatic, normocephalic. Pupils equal, reactive. Extraocular movements are intact. Nonicteric sclerae. Well-injected conjunctivae. Oral mucosa normal. Nasal mucosa normal. NECK: Supple. No adenopathy. No murmur. Thyroid is not palpable. Trachea is midline. No supraclavicular adenopathy. HEART: S1, S2 regular. No murmur. No gallops, friction, or rubs. No displacement of PMI. LUNGS: Clear to auscultation bilaterally. No wheezes, rhonchi, or crackles. Bowel sounds are positive. Nontender abdomen. No hepatosplenomegaly. EXTREMITIES: No lower extremity edema. No cyanosis. NEUROLOGIC: Cranial nerves 2 through 12 within normal limits. Normal motor function. Normal sensory function. Normal reflexes. LABORATORY DATA: Blood work shows a WBC of 7.3, hemoglobin of 12.5, platelets of 389, and neutrophil count %. ABG shows pH of 7.395. Sodium is 144, potassium of 5, BUN 16, creatinine 1.5. Previous creatinine was initially 2 and during his previous admission, his creatinine was 0.81. Chest x-ray shows stable appearance of chest. Brain CT shows no acute finding. ASSESSMENT AND PLAN: This is a 40-year-old male patient, who is noncompliant with his medical treatment, presents with hyperosmotic nonketotic coma like presentation. Currently, he is in the IMCU. He is receiving insulin via a drip as per our protocol. We will continue with fluid hydration, keeping in mind that he received a lot of fluids in the ER, so we will taper off his rate to around 75 mL/h. We will monitor his labs and adjust our management accordingly. For DVT prophylaxis, he will be on Lovenox. One hour of critical care time was spent to manage the patient. Job ID: [id number]
[2020-05-13 08:24] LABS: Hemoglobin 11.7 g/dL (14.0-18.0); Mean Corpuscular HGB CONC 31.1 g/dL (32.0-36.0); Mean Corpuscular Hemoglobin 20.5 pg (27.0-31.0); Mean Corpuscular Volume 66.1 fL (78.0-98.0); Mean Platelet Volume 6.4 fL (7.4-10.4); Platelet Count 322 thou/uL (130-400); RBC Distribution Width 20.4 % (11.5-14.5); Red Blood Cell (RBC) Count 5.69 mill/uL (4.70-6.10); White Blood Cell (WBC) Count 8.3 thou/uL (4.8-10.8)
[2020-05-13 08:25] LABS: Anion Gap 15 mmol/L (10-20); BUN (Urea Nitrogen) 11 mg/dL (8.9-20.6); Calc. Creatinine Clearance 147 mL/min (70-130); Calcium 9.6 mg/dL (7.8-10.44); Carbon Dioxide 29 mmol/L (22-29); Chloride 108 mmol/L (98-107); Estimated GFR-MDRD 82; Glucose 345 mg/dL (70-105); Potassium 4.2 mmol/L (3.5-5.1); Sodium 148 mmol/L (136-145)
[2020-05-13 08:42] LABS: #Lymphocytes 1.2 thou/uL (1.20-3.40); #Monocytes 0.6 thou/uL (0.11-0.59); #Neutrophils 6.5 thou/uL (1.40-6.50); %Basophils 0.5 % (0.0-1.0); %Eosinophils 0.5 % (0.0-10.0); %Monocytes 6.6 % (0.0-10.0); %Neutrophils 78.3 % (42.0-75.0); Hypochromia SLIGHT = 6-15 cells (100X) (0-5/hpf); Large Platelets SLIGHT; MDiff Complete? YES; Microcytosis MODERATE=15-30 cells (100X) (0-5/hpf); Platelet Morphology Comment Appears Adequate
[2020-05-13] MEDS: Enoxaparin Sodium 40 MG/0.4 ML SYRINGE SC SCH (09:40)
[2020-05-13] MEDS ORDERED: Acetaminophen 325 MG TAB PO PRN (10:30)
[2020-05-13] MEDS ORDERED: Dextrose 5% in Water 1,000 ML IV PRN (10:30)
[2020-05-13] MEDS ORDERED: Insulin Glargine 20 UNITS in Pre-Filled Syringe 1 EACH SC SCH (10:30)
[2020-05-13] MEDS ORDERED: Dextrose 50% Abboject 50 ML SYRINGE SLOW IVP PRN (10:30)
[2020-05-13] MEDS: Sodium Chloride 0.9% 1,000 ML IV SCH ×3 (11:18→16:05)
--- NOTE | 2020-05-13 12:49 | PDOC.HOSPP ---
- Subjective Encounter Date: 05/13/20 Encounter Time: 11:30 Subjective: no sob or abd pain no nausea now says he is compliant with meds but drinks lot of energy drinks at work - Objective Vital Signs & Weight: Vital Signs (12 hours) Temp Pulse Ox 05/13/20 12:05 99.0 F 05/13/20 08:00 98 05/13/20 07:20 98.3 F 05/13/20 03:56 98.1 F 05/13/20 02:30 96 05/13/20 02:10 98.1 F Weight Weight 278 lb 0.046 oz Most Recent Monitor Data Heart Rate from ECG 102 NIBP 152/101 NIBP BP-Mean 118 Respiration from ECG 21 SpO2 98 I&O: 05/12/20 05/13/20 05/14/20 06:59 06:59 06:59 Intake Total 1379 Output Total 900 Balance 479 Result Diagrams: 05/13/20 07:43 05/13/20 07:43 Additional Labs: Accuchecks 05/13/20 05/13/20 05/13/20 10:05 09:15 08:07 POC Glucose 292 H 277 H 296 H 05/13/20 05/13/20 05/13/20 06:58 05:58 05:10 POC Glucose 329 H 375 H 467 H 05/13/20 05/13/20 05/13/20 04:00 02:42 00:16 POC Glucose 421 H 472 H Greater than 550 H* Hospitalist ROS - Medication Medications: Active Medications Generic Name Dose Route Start Last Admin Trade Name Freq PRN Reason Stop Dose Admin Enoxaparin Sodium 40 mg 05/13/20 09:00 05/13/20 09:40 Lovenox SC 40 mg 0900 TERRY Administration Insulin Glargine 20 units/ 0.2 mls @ 0 mls/hr 05/13/20 10:30 05/13/20 11:18 Miscellaneous Medication SC 05/13/20 13:00 0.2 mls NOW TERRY Administration Sodium Chloride 1,000 mls @ 100 mls/hr 05/13/20 10:30 05/13/20 11:25 Normal Saline 0.9% IV 1,000 mls .Q10H TERRY Administration - Exam General Appearance: awake alert Eye: PERRL, anicteric sclera ENT: no oropharyngeal lesions, moist mucosa Neck: supple, no JVD Heart: RRR, no murmur Respiratory: no wheezes, no rales Gastrointestinal: soft, non-tender, non-distended, normal bowel sounds Extremities: no cyanosis, no edema Neurological: cranial nerve grossly intact, no focal deficits Hosp A/P (1) DKA (diabetic ketoacidoses) Code(s): E11.10 - TYPE 2 DIABETES MELLITUS WITH KETOACIDOSIS WITHOUT COMA Status: Resolved Qualifiers: Diabetes mellitus type: type 2 Diabetes mellitus complication detail: without coma Qualified Code(s): E11.10 - Type 2 diabetes mellitus with ketoacidosis without coma (2) DM type 2 (diabetes mellitus, type 2) Status: Chronic Qualifiers: Diabetes mellitus jail insulin use: without terminologist use (3) Morbidly obese Code(s): E66.01 - MORBID (SEVERE) OBESITY DUE TO EXCESS CALORIES Status: Chronic (4) HTN (hypertension) Code(s): I10 - ESSENTIAL (PRIMARY) HYPERTENSION Status: Chronic Qualifiers: Hypertension type: essential hypertension Qualified Code(s): I10 - Essential (primary) hypertension (5) Microcytic anemia Code(s): D50.9 - IRON DEFICIENCY ANEMIA, UNSPECIFIED Status: Chronic - Plan hemostable dc insulin drip, start lantus, humalog achs coverage continue iv fluids tx to med floor will add lisinopril for htn needs to wear cpap when asleep
[2020-05-13] MEDS: HumaLOG 300 UNITS/3 ML VIAL SC PRN ×2 (16:01→20:23)
[2020-05-13] MEDS: metFORMIN 500 MG TAB PO SCH (17:26)
[2020-05-13] MEDS: Montelukast Sodium 10 mg Tablet PO SCH (20:21)
[2020-05-13] MEDS: buPROPion HCl 100 MG TAB PO SCH (20:22)
[2020-05-13] MEDS: Melatonin 3 MG TAB PO PRN (20:28)
[2020-05-13] MEDS: Acetaminophen/Codeine 120-12MG/5 ML UDCUP PO PRN (20:28)
[2020-05-14] MEDS: Sodium Chloride 0.9% 1,000 ML IV SCH ×3 (01:34→20:41)
[2020-05-14] MEDS: HumaLOG 300 UNITS/3 ML VIAL SC PRN ×4 (05:57→20:34)
[2020-05-14 06:00] LABS: #Eosinphils 0.1 thou/uL (0.0-0.7); #Lymphocytes 1.3 thou/uL (1.20-3.40); #Monocytes 0.3 thou/uL (0.11-0.59); #Neutrophils 3.4 thou/uL (1.40-6.50); %Basophils 0.8 % (0.0-1.0); %Eosinophils 2.5 % (0.0-10.0); %Lymphocytes 25.2 % (21.0-51.0); %Monocytes 6.5 % (0.0-10.0); %Neutrophils 65.1 % (42.0-75.0); Hemoglobin 10.6 g/dL (14.0-18.0); Mean Corpuscular HGB CONC 29.9 g/dL (32.0-36.0); Mean Corpuscular Hemoglobin 20.1 pg (27.0-31.0); Mean Corpuscular Volume 67.3 fL (78.0-98.0); Mean Platelet Volume 6.5 fL (7.4-10.4); Platelet Count 189 thou/uL (130-400); RBC Distribution Width 20.8 % (11.5-14.5); Red Blood Cell (RBC) Count 5.28 mill/uL (4.70-6.10); White Blood Cell (WBC) Count 5.2 thou/uL (4.8-10.8)
[2020-05-14 06:16] LABS: Anion Gap 17 mmol/L (10-20); BUN (Urea Nitrogen) 8 mg/dL (8.9-20.6); Calc. Creatinine Clearance 186 mL/min (70-130); Calcium 8.2 mg/dL (7.8-10.44); Carbon Dioxide 21 mmol/L (22-29); Chloride 100 mmol/L (98-107); Estimated GFR-MDRD Greater than 90; Glucose 322 mg/dL (70-105); Potassium 3.8 mmol/L (3.5-5.1); Sodium 134 mmol/L (136-145)
[2020-05-14] MEDS: metFORMIN 500 MG TAB PO SCH ×2 (08:29→16:49)
[2020-05-14] MEDS: Enoxaparin Sodium 40 MG/0.4 ML SYRINGE SC SCH (08:30)
[2020-05-14] MEDS: Lisinopril 10 MG TAB PO SCH (08:30)
[2020-05-14] MEDS: buPROPion HCl 100 MG TAB PO SCH ×3 (12:01→20:33)
--- NOTE | 2020-05-14 13:40 | PDOC.HOSPP ---
- Subjective Encounter Date: 05/14/20 Encounter Time: 07:50 Subjective: awakens but sleeps off quickly is tolerating oral diet - Objective Vital Signs & Weight: Vital Signs (12 hours) Temp Pulse Resp BP BP BP Pulse Ox 05/14/20 08:30 155/107 H 05/14/20 07:58 97.9 F 90 18 155/107 H 95 05/14/20 04:19 97.8 F 85 18 120/82 96 Weight Weight 278 lb 0.046 oz Most Recent Monitor Data Heart Rate from ECG 102 NIBP 152/101 NIBP BP-Mean 118 Respiration from ECG 21 SpO2 98 I&O: 05/13/20 05/14/20 05/15/20 06:59 06:59 06:59 Intake Total 1379 4340 Output Total 900 Balance 479 4340 Result Diagrams: 05/14/20 05:43 05/14/20 05:43 Additional Labs: Accuchecks 05/14/20 05/14/20 05/13/20 11:55 05:33 19:59 POC Glucose 320 H 306 H 414 H 05/13/20 15:53 POC Glucose 374 H Hospitalist ROS - Medication Medications: Active Medications Generic Name Dose Route Start Last Admin Trade Name Freq PRN Reason Stop Dose Admin Acetaminophen/Codeine Phosphate 5 ml 05/13/20 20:09 05/13/20 20:28 Tylenol/Codeine Elixir PO 5 ml Q4H PRN Administration Cough Albuterol/Ipratropium 3 ml 05/13/20 10:30 05/13/20 18:43 Duoneb NEB 3 ml Q4H PRN Administration SOB &/or Wheezing Bupropion HCl 100 mg 05/13/20 21:00 05/14/20 12:01 Wellbutrin PO Not Given BID TERRY Enoxaparin Sodium 40 mg 05/13/20 09:00 05/14/20 08:30 Lovenox SC 40 mg 0900 TERRY Administration Sodium Chloride 1,000 mls @ 100 mls/hr 05/13/20 10:30 05/14/20 12:03 Normal Saline 0.9% IV 1,000 mls .Q10H TERRY Administration Insulin Human Lispro 0 units 05/13/20 10:30 05/14/20 11:57 Humalog SC 11 unit .AGGRESSIVE SLIDING PRN Administration Aggressive Correctional Scale Lisinopril 10 mg 05/14/20 09:00 05/14/20 08:30 Zestril PO 10 mg DAILY TERRY Administration Melatonin 3 mg 05/13/20 20:09 05/13/20 20:28 Melatonin PO 3 mg HS PRN Administration Insomnia Montelukast Sodium 10 mg 05/13/20 21:00 05/13/20 20:21 Singulair PO 10 mg QPM TERRY Administration - Exam General Appearance: awake alert Eye: PERRL, anicteric sclera ENT: no oropharyngeal lesions, dry oral mucosa Neck: supple, no JVD Heart: RRR, no murmur Respiratory: no wheezes, no rales Gastrointestinal: soft, non-tender, non-distended, normal bowel sounds Extremities: no cyanosis, no edema Neurological: cranial nerve grossly intact, no focal deficits Hosp A/P (1) DKA (diabetic ketoacidoses) Code(s): E11.10 - TYPE 2 DIABETES MELLITUS WITH KETOACIDOSIS WITHOUT COMA Status: Resolved Qualifiers: Diabetes mellitus type: type 2 Diabetes mellitus complication detail: without coma Qualified Code(s): E11.10 - Type 2 diabetes mellitus with ketoacidosis without coma (2) DM type 2 (diabetes mellitus, type 2) Status: Chronic Qualifiers: Diabetes mellitus laborer marine terminal insulin use: without laborer marine terminal use (3) Morbidly obese Code(s): E66.01 - MORBID (SEVERE) OBESITY DUE TO EXCESS CALORIES Status: Chronic (4) HTN (hypertension) Code(s): I10 - ESSENTIAL (PRIMARY) HYPERTENSION Status: Chronic Qualifiers: Hypertension type: essential hypertension Qualified Code(s): I10 - Essential (primary) hypertension (5) Microcytic anemia Code(s): D50.9 - IRON DEFICIENCY ANEMIA, UNSPECIFIED Status: Chronic - Plan hemostable is on lantus, humalog achs coverage continue iv fluids will add lisinopril for htn needs to wear cpap when asleep, have asked him to call his to bring his machine to the front so he can start using it likely has severe sleep apnea
[2020-05-14] MEDS: glipiZIDE 5 MG TAB PO SCH (16:49)
[2020-05-14] MEDS: Montelukast Sodium 10 mg Tablet PO SCH (20:33)
[2020-05-14] MEDS: Melatonin 3 MG TAB PO PRN (22:21)
[2020-05-14] MEDS: Acetaminophen/Codeine 120-12MG/5 ML UDCUP PO PRN (22:21)
[2020-05-15] MEDS: Sodium Chloride 0.9% 1,000 ML IV SCH (05:06)
[2020-05-15] MEDS: HumaLOG 300 UNITS/3 ML VIAL SC PRN ×4 (05:06→21:04)
[2020-05-15] MEDS: metFORMIN 500 MG TAB PO SCH ×2 (08:03→16:20)
[2020-05-15] MEDS: glipiZIDE 5 MG TAB PO SCH ×2 (08:03→16:19)
[2020-05-15] MEDS: buPROPion HCl 100 MG TAB PO SCH ×2 (08:03→21:03)
[2020-05-15] MEDS: Lisinopril 10 MG TAB PO SCH (08:03)
[2020-05-15] MEDS: Enoxaparin Sodium 40 MG/0.4 ML SYRINGE SC SCH (08:04)
--- NOTE | 2020-05-15 09:49 | PDOC.HOSPP ---
- Subjective Encounter Date: 05/15/20 Encounter Time: 12:00 Subjective: Patient reports some soreness of tongue and throat. No other complaints. - Objective Vital Signs & Weight: Vital Signs (12 hours) Temp Pulse Resp BP BP Pulse Ox 05/15/20 07:41 98.4 F 105 H 20 134/88 97 05/15/20 04:06 97.7 F 80 20 143/88 H 97 Weight Weight 278 lb 0.046 oz Most Recent Monitor Data Heart Rate from ECG 102 NIBP 152/101 NIBP BP-Mean 118 Respiration from ECG 21 SpO2 98 I&O: 05/14/20 05/15/20 05/16/20 06:59 06:59 06:59 Intake Total 4340 6570 Balance 4340 6570 Result Diagrams: 05/14/20 05:43 05/14/20 05:43 Additional Labs: Accuchecks 05/15/20 05/14/20 05/14/20 05:07 19:43 16:22 POC Glucose 270 H 280 H 297 H 05/14/20 11:55 POC Glucose 320 H Hospitalist ROS - Review of Systems Constitutional: denies: fever, chills Respiratory: denies: cough, shortness of breath Cardiovascular: denies: chest pain, palpitations Gastrointestinal: denies: nausea, vomiting, abdominal pain, diarrhea, constipation - Medication Medications: Active Medications Generic Name Dose Route Start Last Admin Trade Name Freq PRN Reason Stop Dose Admin Acetaminophen 650 mg 05/13/20 10:30 05/14/20 16:56 Tylenol PO 650 mg Q6H PRN Administration Pain Acetaminophen/Codeine Phosphate 5 ml 05/13/20 20:09 05/14/20 22:21 Tylenol/Codeine Elixir PO 5 ml Q4H PRN Administration Cough Albuterol/Ipratropium 3 ml 05/13/20 10:30 05/14/20 19:49 Duoneb NEB 3 ml Q4H PRN Administration SOB &/or Wheezing Bupropion HCl 100 mg 05/13/20 21:00 05/15/20 08:03 Wellbutrin PO 100 mg BID TERRY Administration Enoxaparin Sodium 40 mg 05/13/20 09:00 05/15/20 08:04 Lovenox SC 40 mg 0900 TERRY Administration Glipizide 5 mg 05/14/20 16:30 05/15/20 08:03 Glucotrol PO 5 mg BID-AC TERRY Administration Sodium Chloride 1,000 mls @ 100 mls/hr 05/13/20 10:30 05/15/20 05:06 Normal Saline 0.9% IV 1,000 mls .Q10H TERRY Administration Insulin Human Lispro 0 units 05/13/20 10:30 05/15/20 05:06 Humalog SC 9 unit .AGGRESSIVE SLIDING PRN Administration Aggressive Correctional Scale Insulin Human Lispro 0 units 05/13/20 10:30 05/14/20 20:34 Humalog SC 3 unit .BEDTIME SLIDING SC PRN Administration Bedtime Correctional Scale Lisinopril 10 mg 05/14/20 09:00 05/15/20 08:03 Zestril PO 10 mg DAILY TERRY Administration Melatonin 3 mg 05/13/20 20:09 05/14/20 22:21 Melatonin PO 3 mg HS PRN Administration Insomnia Metformin HCl 1,000 mg 05/14/20 17:00 05/15/20 08:03 Glucophage PO 1,000 mg BID-WM TERRY Administration Montelukast Sodium 10 mg 05/13/20 21:00 05/14/20 20:33 Singulair PO 10 mg QPM TERRY Administration - Exam General Appearance: NAD, awake alert ENT: moist mucosa ENT - other findings: tongue with mild irritation and some white plaque, possible thrush Heart: RRR, no murmur, no gallops, no rubs Respiratory: CTAB, no wheezes, no rales, no ronchi Gastrointestinal: soft, non-tender, non-distended, normal bowel sounds Psychiatric: normal affect, normal behavior, A&O x 3 Hosp A/P (1) Diabetes with hyperosmolar coma Code(s): E11.01 - TYPE 2 DIABETES MELLITUS WITH HYPEROSMOLARITY WITH COMA Status: Resolved (2) DM type 2 (diabetes mellitus, type 2) Status: Chronic Qualifiers: Diabetes mellitus longwall shearer operator insulin use: without longwall shearer operator use Plan: uncontrolled (3) HTN (hypertension) Code(s): I10 - ESSENTIAL (PRIMARY) HYPERTENSION Status: Chronic Qualifiers: Hypertension type: essential hypertension Qualified Code(s): I10 - Essential (primary) hypertension (4) Microcytic anemia Code(s): D50.9 - IRON DEFICIENCY ANEMIA, UNSPECIFIED Status: Chronic (5) NILSON on CPAP Code(s): G47.33 - OBSTRUCTIVE SLEEP APNEA (ADULT) (PEDIATRIC); Z99.89 - DEPENDENCE ON OTHER ENABLING MACHINES AND DEVICES Status: Chronic (6) Morbidly obese Code(s): E66.01 - MORBID (SEVERE) OBESITY DUE TO EXCESS CALORIES Status: Chronic - Plan hemostable Patient receiving over 30 units SSI Will start Lantus 25 units this morning Can d/c IV fluids added lisinopril for htn has his CPAP at bedside and much more alert this AM Will try nystatin SSW Will need work note, likely home tomorrow.
[2020-05-15] MEDS ORDERED: Insulin Glargine 25 UNITS in Pre-Filled Syringe 1 EACH SC SCH (10:00)
[2020-05-15] MEDS: Nystatin 500,000 UNITS/5 ML UDCUP SSW SCH ×3 (12:23→21:03)
[2020-05-15] MEDS ORDERED: Montelukast Sodium 10 mg Tablet PO SCH (21:00)
[2020-05-15] MEDS: Montelukast Sodium 10 mg Tablet PO SCH (21:03)
[2020-05-15] MEDS: Melatonin 3 MG TAB PO PRN (21:19)
[2020-05-15] MEDS: Acetaminophen/Codeine 120-12MG/5 ML UDCUP PO PRN (21:27)
[2020-05-16] MEDS: HumaLOG 300 UNITS/3 ML VIAL SC PRN ×2 (05:30→12:55)
[2020-05-16 07:41] VITALS: BP 124/80; TEMP 97.5
--- NOTE | 2020-05-16 08:19 | PDOC.HOSPP ---
- Subjective Encounter Date: 05/16/20 Encounter Time: 11:30 Subjective: Patient without complaint. Blood sugar still running a bit high. - Objective Vital Signs & Weight: Vital Signs (12 hours) Temp Pulse Resp BP Pulse Ox 05/16/20 07:38 97.5 F L 89 16 124/80 95 05/16/20 05:07 97.8 F 84 18 128/82 96 05/16/20 00:58 99 05/15/20 21:57 97 16 99 Weight Weight 278 lb 0.046 oz Most Recent Monitor Data Heart Rate from ECG 102 NIBP 152/101 NIBP BP-Mean 118 Respiration from ECG 21 SpO2 98 I&O: 05/15/20 05/16/20 05/17/20 06:59 06:59 06:59 Intake Total 6570 4040 Balance 6570 4040 Result Diagrams: 05/14/20 05:43 05/14/20 05:43 Additional Labs: Accuchecks 05/16/20 05/15/20 05/15/20 05:06 19:38 16:30 POC Glucose 313 H 333 H 270 H 05/15/20 11:40 POC Glucose 320 H Hospitalist ROS - Review of Systems Constitutional: denies: fever, chills Respiratory: denies: cough, shortness of breath Cardiovascular: denies: chest pain, palpitations, orthopnea Gastrointestinal: denies: nausea, vomiting, abdominal pain - Medication Medications: Active Medications Generic Name Dose Route Start Last Admin Trade Name Freq PRN Reason Stop Dose Admin Acetaminophen 650 mg 05/13/20 10:30 05/14/20 16:56 Tylenol PO 650 mg Q6H PRN Administration Pain Acetaminophen/Codeine Phosphate 5 ml 05/13/20 20:09 05/15/20 21:27 Tylenol/Codeine Elixir PO 5 ml Q4H PRN Administration Cough Albuterol/Ipratropium 3 ml 05/13/20 10:30 05/15/20 21:57 Duoneb NEB 3 ml Q4H PRN Administration SOB &/or Wheezing Bupropion HCl 100 mg 05/13/20 21:00 05/15/20 21:03 Wellbutrin PO 100 mg BID TERRY Administration Enoxaparin Sodium 40 mg 05/13/20 09:00 05/15/20 08:04 Lovenox SC 40 mg 0900 TERRY Administration Glipizide 5 mg 05/14/20 16:30 05/15/20 16:19 Glucotrol PO 5 mg BID-AC TERRY Administration Insulin Human Lispro 0 units 05/13/20 10:30 05/16/20 05:30 Humalog SC 11 unit .AGGRESSIVE SLIDING PRN Administration Aggressive Correctional Scale Insulin Human Lispro 0 units 05/13/20 10:30 05/15/20 21:04 Humalog SC 4 unit .BEDTIME SLIDING SC PRN Administration Bedtime Correctional Scale Lisinopril 10 mg 05/14/20 09:00 05/15/20 08:03 Zestril PO 10 mg DAILY TERRY Administration Melatonin 3 mg 05/13/20 20:09 05/15/20 21:19 Melatonin PO 3 mg HS PRN Administration Insomnia Metformin HCl 1,000 mg 05/14/20 17:00 05/15/20 16:20 Glucophage PO 1,000 mg BID-WM TERRY Administration Montelukast Sodium 10 mg 05/13/20 21:00 05/15/20 21:03 Singulair PO 10 mg QPM TERRY Administration Montelukast Sodium 10 mg 05/15/20 21:00 05/15/20 21:03 Singulair PO Not Given QPM TERRY Nystatin 500,000 units 05/15/20 13:00 05/15/20 21:03 Mycostatin SSW 500,000 units QID TERRY Administration - Exam General Appearance: NAD, awake alert ENT: moist mucosa Heart: RRR, no murmur, no gallops, no rubs Respiratory: CTAB, no wheezes, no rales, no ronchi Gastrointestinal: soft, non-tender, non-distended, normal bowel sounds Psychiatric: normal affect, normal behavior, A&O x 3 Hosp A/P (1) Diabetes with hyperosmolar coma Code(s): E11.01 - TYPE 2 DIABETES MELLITUS WITH HYPEROSMOLARITY WITH COMA Status: Resolved (2) DM type 2 (diabetes mellitus, type 2) Status: Chronic Qualifiers: Diabetes mellitus termite treater helper insulin use: without half-way use (3) HTN (hypertension) Code(s): I10 - ESSENTIAL (PRIMARY) HYPERTENSION Status: Chronic Qualifiers: Hypertension type: essential hypertension Qualified Code(s): I10 - Essential (primary) hypertension (4) Microcytic anemia Code(s): D50.9 - IRON DEFICIENCY ANEMIA, UNSPECIFIED Status: Chronic (5) NILSON on CPAP Code(s): G47.33 - OBSTRUCTIVE SLEEP APNEA (ADULT) (PEDIATRIC); Z99.89 - DEPENDENCE ON OTHER ENABLING MACHINES AND DEVICES Status: Chronic (6) Morbidly obese Code(s): E66.01 - MORBID (SEVERE) OBESITY DUE TO EXCESS CALORIES Status: Chronic - Plan hemostable Blood sugars elevated, will increase Lantus to 35 units qAM, diabetic teaching yesterday added lisinopril for htn has his CPAP at bedside and much more alert this AM Will try nystatin SSW Will need work note, home today.
[2020-05-16] MEDS: glipiZIDE 5 MG TAB PO SCH (08:36)
[2020-05-16] MEDS: buPROPion HCl 100 MG TAB PO SCH (08:36)
[2020-05-16] MEDS: metFORMIN 500 MG TAB PO SCH (08:37)
[2020-05-16] MEDS: Lisinopril 10 MG TAB PO SCH (08:37)
[2020-05-16] MEDS: Enoxaparin Sodium 40 MG/0.4 ML SYRINGE SC SCH (08:38)
[2020-05-16] MEDS: Nystatin 500,000 UNITS/5 ML UDCUP SSW SCH ×2 (08:38→12:05)
[2020-05-16] MEDS ORDERED: Insulin Glargine 25 UNITS in Pre-Filled Syringe 1 EACH SC SCH (09:00)
[2020-05-16] MEDS ORDERED: Insulin Glargine 35 UNITS in Pre-Filled Syringe 1 EACH SC SCH (09:00)
--- NOTE | 2020-05-16 20:39 | DIS ---
DATE OF ADMISSION: 05/13/2020 DATE OF DISCHARGE: 05/16/2020 PRIMARY CARE PHYSICIAN: Pattie Leavitt MD REASON FOR ADMISSION: Hyperosmotic nonketotic coma. DIAGNOSES AT DISCHARGE: 1. Hyperosmotic nonketotic coma, resolved. 2. Diabetes mellitus type 2, now insulin dependent. 3. Hypertension. 4. Microcytic anemia. 5. Obstructive sleep apnea, on CPAP. 6. Morbid obesity. PROCEDURES: None. CONSULTATIONS: None. SUMMARY OF HOSPITAL COURSE: This is a 40-year-old obese Afro [place] male with a history of diabetes, not compliant with his medication regimen, who has been eating lots of sweet things and drinking lots of sodas. He came with a blood sugar of 1600 and was started on insulin drip and given IV fluids. The patient had marked improvement during hospitalization and blood sugars eventually stabilized to 300s. He was put on long-acting insulin. This is being titrated up. He was given teaching on how to inject insulin and he was asymptomatic and ready to go home the day of discharge. DISCHARGE MANAGEMENT: Discharged home. ACTIVITY: As tolerated. DIET: Diabetic diet. EQUIPMENT: Supplies glucometer. Prescription given. FOLLOWUP: With Dr. Leavitt in 2 weeks. Bring a log of blood sugars checked twice a day to the appointment. DISCHARGE MEDICATIONS: 1. Glipizide 5 mg twice a day, 60 tablets dispensed. 2. Novolin 70/30 of 20 units subcutaneous twice a day, 3 vials dispensed. 3. Metformin 1000 mg twice a day, 60 tablets dispensed. 4. Nystatin swish and swallow 3 times a day, 30 mL dispensed. Job ID: [id number]
== END 2020-05-16 14:05 | disposition home or self-care (01) | DRG 638 ==
LOC: ERS 23:43 → IMCU/EMU 05-13 00:46 → T4-B 05-13 15:35
PROVIDERS: ADMIT Internal Medicine; ATTEND Internal Medicine
DX: E11.01 Type 2 diabetes mellitus with hyperosmolarity with coma (principal); I50.32 Chronic diastolic (congestive) heart failure; D50.9 Iron deficiency anemia, unspecified; E66.01 Morbid (severe) obesity due to excess calories; G47.33 Obstructive sleep apnea (adult) (pediatric); E78.5 Hyperlipidemia, unspecified; J44.9 Chronic obstructive pulmonary disease, unspecified; I11.0 Hypertensive heart disease with heart failure; E78.00 Pure hypercholesterolemia, unspecified; J02.9 Acute pharyngitis, unspecified; I27.20 Pulmonary hypertension, unspecified; Z79.84 Long term (current) use of oral hypoglycemic drugs; Z79.899 Other long term (current) drug therapy; Z99.89 Dependence on other enabling machines and devices; Z79.51 Long term (current) use of inhaled steroids; Z91.14 Patient's other noncompliance with medication regimen; Z68.38 Body mass index [BMI] 38.0-38.9, adult
CPT/HCPCS: 36415; 36416; 80048; 85025; 94640; 96365; J1650; J1815; J3490; J7620

== ENCOUNTER 2021-09-15 23:11 | Inpatient (IN) | payer BC ==
[2021-09-15 23:58] LABS: Actual Bicarbonate (HCO3a) 23.6 mEq/L (22-28); Analyzer IN Cardio ER; Base Excess (BEa) -2.4 mEq/L (-2.0 to +3.0); CO2 Tension 45.7 mmHg (35.0-45.0); Calcium, Ionized (arterial) 1.05 mmol/L (1.12-1.30); Carboxyhemoglobin (COHb) 0.2 gm% (0.0-3.0); Hemoglobin (Hb) 10.1 g/dL (14.0-18.0); O2 Tension (PaO2), arterial 155.9 mmHg (80.0-100.0); Potassium - ABG Lab 4.19 mmol/L (3.70-5.30); pH, Arterial 7.33 (7.35-7.45)
[2021-09-15 23:59] LABS: ALV-art Gradient 43.655 mmHg (0-20); Puncture Site LRA
[2021-09-16 00:28] LABS: ALT (SGPT) 56 U/L (8-55); AST (SGOT) 108 U/L (5-34); Albumin 3.7 g/dL (3.5-5.0); Alkaline Phosphatase 44 U/L (40-110); Anion Gap 17 mmol/L (10-20); BUN (Urea Nitrogen) 45 mg/dL (8.9-20.6); Bilirubin, Total 1.1 mg/dL (0.2-1.2); Calc. Creatinine Clearance 0 mL/min (70-130); Calcium 8.2 mg/dL (7.8-10.44); Carbon Dioxide 22 mmol/L (22-29); Chloride 95 mmol/L (98-107); Globulin 2.8 g/dL (2.4-3.5); Glucose 156 mg/dL (70-105); Potassium 4.5 mmol/L (3.5-5.1); Protein, Total 6.5 g/dL (6.0-8.3); Sodium 129 mmol/L (136-145)
[2021-09-16 00:42] LABS: #Basophils 0.1 thou/uL (0.0-0.2); #Lymphocytes 0.2 thou/uL (1.20-3.40); #Monocytes 0.2 thou/uL (0.11-0.59); #Neutrophils 10.3 thou/uL (1.40-6.50); %Basophils 0.5 % (0.0-1.0); %Eosinophils 0.1 % (0.0-10.0); %Lymphocytes 1.9 % (21.0-51.0); %Neutrophils 95.6 % (42.0-75.0); Anisocytosis SLIGHT = 6-15 cells (100X) (0-5/hpf); Bite Cells SLIGHT = 2-5 cells (100X) (0-1/hpf); Hemoglobin 9.3 g/dL (14.0-18.0); Hypochromia MODERATE=16-30 cells (100X) (0-5/hpf); MDiff Complete? YES; Mean Corpuscular HGB CONC 30.2 g/dL (32.0-36.0); Mean Corpuscular Hemoglobin 18.8 pg (27.0-31.0); Mean Corpuscular Volume 62.4 fL (78.0-98.0); Microcytosis MODERATE=15-30 cells (100X) (0-5/hpf); Platelet Count 271 thou/uL (130-400); Platelet Morphology Comment Appears Adequate; Polychromasia SLIGHT = 2-3 cells (100X) (0-2/hpf); RBC Distribution Width 19.3 % (11.5-14.5); Red Blood Cell (RBC) Count 4.93 mill/uL (4.70-6.10); White Blood Cell (WBC) Count 10.8 thou/uL (4.8-10.8)
[2021-09-16 00:56] LABS: CKMB 14.9 ng/mL (0-6.6)
[2021-09-16 02:48] LABS: Bacteria/HPF None Seen HPF (None Seen); Bilirubin Negative (Negative); Blood, Urine 3+ (Negative); Clarity Clear (Clear); Glucose, Urine (Dipstick) Normal (Negative); Ketone, Urine Negative (Negative); Leukocyte Negative Leu/uL (Negative); Nitrite Negative (Negative); Protein, Urine (Dipstick) 100 mg/dL (Neg-Trace); RBC/HPF 0-3 HPF (0-3); Specific Gravity, Urine 1.015 (1.002-1.036); Squamous Epithelial 0-3 HPF (0-3); Urobilinogen Normal mg/dL (Less than 2); WBC/HPF 0-3 HPF (0-3); pH, Urine 5.5 (5.0-9.0)
[2021-09-16] MEDS ORDERED: Ondansetron PF 4 MG/2 ML Vial IVP PRN (02:57)
[2021-09-16] MEDS ORDERED: Acetaminophen 325 MG TAB PO PRN (02:57)
[2021-09-16 02:58] LABS: Sodium, Urine Less than 20 mmol/L (Not Available)
[2021-09-16] MEDS ORDERED: Dextrose 5% in Water 1,000 ML IV PRN (02:59)
[2021-09-16] MEDS ORDERED: Dextrose 50% Abboject 50 ML SYRINGE SLOW IVP PRN (02:59)
[2021-09-16] MEDS ORDERED: HumaLOG 300 UNITS/3 ML VIAL SC PRN (02:59)
[2021-09-16 03:01] LABS: Urine Culture Reflex No No
[2021-09-16] MEDS ORDERED: Albuterol Sulfate 2.5 mg/3 ml Neb NEB PRN (03:01)
[2021-09-16 03:29] LABS: Troponin I 0.065 ng/mL (< 0.028)
[2021-09-16] MEDS ORDERED: Pharmacy to Dose REMDESIVIR IVPB PRN (03:35)
[2021-09-16] MEDS ORDERED: Enoxaparin Sodium 80 MG/0.8 ML SYRINGE SC SCH (03:45)
[2021-09-16 04:40] LABS: #Lymphocytes 0.2 thou/uL (1.20-3.40); #Monocytes 0.2 thou/uL (0.11-0.59); #Neutrophils 8.4 thou/uL (1.40-6.50); %Lymphocytes 2.6 % (21.0-51.0); %Monocytes 2.5 % (0.0-10.0); Hemoglobin 9.3 g/dL (14.0-18.0); Mean Corpuscular HGB CONC 29.6 g/dL (32.0-36.0); Mean Corpuscular Hemoglobin 18.6 pg (27.0-31.0); Mean Corpuscular Volume 62.7 fL (78.0-98.0); Mean Platelet Volume 5.7 fL (7.4-10.4); Platelet Count 269 thou/uL (130-400); RBC Distribution Width 19.7 % (11.5-14.5); Red Blood Cell (RBC) Count 5.02 mill/uL (4.70-6.10); White Blood Cell (WBC) Count 8.9 thou/uL (4.8-10.8)
[2021-09-16] MEDS ORDERED: Sodium Chloride 0.9% 1,000 ML IV SCH ×2 (04:45→11:23)
[2021-09-16 04:46] LABS: Phosphorus 5.6 mg/dL (2.3-4.7)
[2021-09-16 04:47] LABS: CRP (Inflammatory) 20.48 mg/dL (= or < 0.5); Magnesium 1.8 mg/dL (1.6-2.6)
[2021-09-16 04:54] LABS: Amphetamine Not Detected (NotDetected); Barbiturates Screen Not Detected (NotDetected); Benzodiazepine Screen Not Detected (NotDetected); Cocaine Metabolite Screen Not Detected (NotDetected); Methadone Not Detected (NotDetected); Methamphetamine Not Detected (NotDetected); Opiate Screen Not Detected (NotDetected); Oxycodone Screen Not Detected (NotDetected); Phencyclidine (PCP) Not Detected (NotDetected); THC/Cannabinoid Screen Not Detected (NotDetected); Tricyclic Screen Not Detected (NotDetected)
[2021-09-16 05:47] LABS: ALT (SGPT) 55 U/L (8-55); AST (SGOT) 100 U/L (5-34); Albumin 3.6 g/dL (3.5-5.0); Alkaline Phosphatase 42 U/L (40-110); Anion Gap 17 mmol/L (10-20); BUN (Urea Nitrogen) 44 mg/dL (8.9-20.6); Bilirubin, Total 0.8 mg/dL (0.2-1.2); Calc. Creatinine Clearance 0 mL/min (70-130); Calcium 8.7 mg/dL (7.8-10.44); Carbon Dioxide 21 mmol/L (22-29); Chloride 96 mmol/L (98-107); Globulin 3.4 g/dL (2.4-3.5); Glucose 262 mg/dL (70-105); Potassium 4.6 mmol/L (3.5-5.1); Sodium 129 mmol/L (136-145)
[2021-09-16 06:33] LABS: Troponin I 0.064 ng/mL (< 0.028)
[2021-09-16] MEDS: HumaLOG 300 UNITS/3 ML VIAL SC PRN ×2 (06:37→17:50)
[2021-09-16] MEDS: Ascorbic Acid 500 mg Chewable Tablet PO SCH (08:55)
[2021-09-16] MEDS: Zinc Sulfate 220 MG CAP PO SCH (08:55)
[2021-09-16] MEDS ORDERED: REMDESIVIR 200 MG in Sodium Chloride 0.9% 250 ML 210 ML IV SCH (09:00)
[2021-09-16] MEDS ORDERED: Enoxaparin Sodium 40 MG/0.4 ML SYRINGE SC SCH (09:00)
[2021-09-16] MEDS ORDERED: Dexamethasone 10 MG/ML VIAL SLOW IVP SCH (09:00)
[2021-09-16 14:53] LABS: Anion Gap 12 mmol/L (10-20); BUN (Urea Nitrogen) 36 mg/dL (8.9-20.6); CK (CPK) 3528 U/L (30-200); Calc. Creatinine Clearance 140 mL/min (70-130); Calcium 8.9 mg/dL (7.8-10.44); Carbon Dioxide 29 mmol/L (22-29); Chloride 100 mmol/L (98-107); Glucose 216 mg/dL (70-105); Potassium 4.5 mmol/L (3.5-5.1); Sodium 136 mmol/L (136-145)
[2021-09-16] MEDS ORDERED: Amlodipine 5 MG TAB PO SCH (15:30)
[2021-09-16] MEDS: Sodium Chloride 0.9% 1,000 ML IV SCH ×2 (16:52→19:45)
[2021-09-16] MEDS ORDERED: Pharmacy to Dose BARICITINIB IVPB PRN (20:46)
[2021-09-16] MEDS ORDERED: BARICITINIB 2 MG TAB PO SCH (21:00)
[2021-09-17] MEDS: HumaLOG 300 UNITS/3 ML VIAL SC PRN ×3 (01:09→11:16)
[2021-09-17 03:59] LABS: #Lymphocytes 0.6 thou/uL (1.20-3.40); #Monocytes 0.6 thou/uL (0.11-0.59); #Neutrophils 11.2 thou/uL (1.40-6.50); %Eosinophils 0.2 % (0.0-10.0); %Lymphocytes 4.6 % (21.0-51.0); %Monocytes 4.8 % (0.0-10.0); %Neutrophils 90.4 % (42.0-75.0); Hemoglobin 9.8 g/dL (14.0-18.0); Mean Corpuscular HGB CONC 29.6 g/dL (32.0-36.0); Mean Corpuscular Hemoglobin 18.9 pg (27.0-31.0); Mean Corpuscular Volume 63.7 fL (78.0-98.0); Mean Platelet Volume 5.2 fL (7.4-10.4); Platelet Count 339 thou/uL (130-400); RBC Distribution Width 19.9 % (11.5-14.5); Red Blood Cell (RBC) Count 5.18 mill/uL (4.70-6.10); White Blood Cell (WBC) Count 12.4 thou/uL (4.8-10.8)
[2021-09-17 04:18] LABS: CRP (Inflammatory) 13.32 mg/dL (= or < 0.5)
[2021-09-17 04:22] LABS: Iron 13 ug/dL (65-175); Iron Binding Capacity, Total 259 mcg/dL (261-462)
[2021-09-17 04:23] LABS: ALT (SGPT) 59 U/L (8-55); AST (SGOT) 86 U/L (5-34); Albumin 3.5 g/dL (3.5-5.0); Alkaline Phosphatase 51 U/L (40-110); Anion Gap 14 mmol/L (10-20); BUN (Urea Nitrogen) 26 mg/dL (8.9-20.6); Bilirubin, Total 0.5 mg/dL (0.2-1.2); Calc. Creatinine Clearance 184 mL/min (70-130); Carbon Dioxide 24 mmol/L (22-29); Chloride 102 mmol/L (98-107); Globulin 3.6 g/dL (2.4-3.5); Glucose 159 mg/dL (70-105); Potassium 5.1 mmol/L (3.5-5.1); Protein, Total 7.1 g/dL (6.0-8.3); Sodium 135 mmol/L (136-145)
[2021-09-17] MEDS ORDERED: NIFEdipine XL 60 MG TAB PO SCH (06:00)
[2021-09-17] MEDS: Ascorbic Acid 500 mg Chewable Tablet PO SCH (07:44)
[2021-09-17] MEDS: Enoxaparin Sodium 40 MG/0.4 ML SYRINGE SC SCH ×2 (07:44→21:30)
[2021-09-17] MEDS: Zinc Sulfate 220 MG CAP PO SCH (07:44)
[2021-09-17] MEDS ORDERED: REMDESIVIR 100 MG in Sodium Chloride 0.9% 250 ML 230 ML IV SCH (09:00)
[2021-09-17 09:21] LABS: Creatinine, Urine 120.94 mg/dL (63-166)
[2021-09-17 09:22] LABS: Protein, Urine Random Quant 113 mg/dL (1-14); Urea Nitrogen, Random Urine 694 mg/dl
[2021-09-17] MEDS ORDERED: Furosemide 40 MG/4 ML VIAL SLOW IVP SCH (14:30)
[2021-09-18 02:43] LABS: #Lymphocytes 1.2 thou/uL (1.20-3.40); #Monocytes 0.6 thou/uL (0.11-0.59); #Neutrophils 7.6 thou/uL (1.40-6.50); %Eosinophils 0.2 % (0.0-10.0); %Lymphocytes 12.8 % (21.0-51.0); %Monocytes 5.8 % (0.0-10.0); %Neutrophils 81.2 % (42.0-75.0); Hemoglobin 9.8 g/dL (14.0-18.0); Mean Corpuscular HGB CONC 29.8 g/dL (32.0-36.0); Mean Corpuscular Hemoglobin 19.2 pg (27.0-31.0); Mean Corpuscular Volume 64.2 fL (78.0-98.0); Mean Platelet Volume 5.3 fL (7.4-10.4); Platelet Count 338 thou/uL (130-400); RBC Distribution Width 20.3 % (11.5-14.5); Red Blood Cell (RBC) Count 5.11 mill/uL (4.70-6.10); White Blood Cell (WBC) Count 9.4 thou/uL (4.8-10.8)
[2021-09-18 02:56] LABS: ALT (SGPT) 56 U/L (8-55); AST (SGOT) 62 U/L (5-34); Albumin 3.4 g/dL (3.5-5.0); Alkaline Phosphatase 47 U/L (40-110); Anion Gap 13 mmol/L (10-20); BUN (Urea Nitrogen) 19 mg/dL (8.9-20.6); Bilirubin, Direct 0.2 mg/dL (0.1-0.3); Bilirubin, Total 0.5 mg/dL (0.2-1.2); Calc. Creatinine Clearance 197 mL/min (70-130); Calcium 8.6 mg/dL (7.8-10.44); Carbon Dioxide 29 mmol/L (22-29); Chloride 101 mmol/L (98-107); Glucose 220 mg/dL (70-105); Magnesium 2.3 mg/dL (1.6-2.6); Potassium 4.9 mmol/L (3.5-5.1); Protein, Total 6.8 g/dL (6.0-8.3); Sodium 138 mmol/L (136-145)
[2021-09-18] MEDS: Ascorbic Acid 500 mg Chewable Tablet PO SCH (08:03)
[2021-09-18] MEDS: Enoxaparin Sodium 40 MG/0.4 ML SYRINGE SC SCH ×2 (08:04→21:39)
[2021-09-18] MEDS: Furosemide 40 MG/4 ML VIAL SLOW IVP SCH (08:04)
[2021-09-18] MEDS: Zinc Sulfate 220 MG CAP PO SCH (08:04)
[2021-09-18] MEDS: Iron, Sodium Ferric Gluconate 250 MG in Sodium Chloride 0.9% 250 ML 250 ML IVPB SCH ×2 (08:36→21:39)
[2021-09-18] MEDS: HumaLOG 300 UNITS/3 ML VIAL SC PRN (12:14)
[2021-09-18 15:16] VITALS: BMI 40.0
[2021-09-18 22:36] LABS: Albumin 3.1 g/dL (3.5-5.0)
[2021-09-18 22:37] LABS: Calcium 8.8 mg/dL (7.8-10.44); Chloride 102 mmol/L (98-107); Potassium 4.7 mmol/L (3.5-5.1); Sodium 140 mmol/L (136-145)
[2021-09-18 22:38] LABS: Globulin 3.6 g/dL (2.4-3.5); Glucose 128 mg/dL (70-105); Protein, Total 6.7 g/dL (6.0-8.3)
[2021-09-18 22:39] LABS: Carbon Dioxide 27 mmol/L (22-29)
[2021-09-18 22:40] LABS: Bilirubin, Total 0.5 mg/dL (0.2-1.2)
[2021-09-18 22:41] LABS: Alkaline Phosphatase 50 U/L (40-110); Phosphorus 2.9 mg/dL (2.3-4.7)
[2021-09-18 22:42] LABS: BUN (Urea Nitrogen) 13 mg/dL (8.9-20.6); Calc. Creatinine Clearance 199 mL/min (70-130)
[2021-09-18 22:43] LABS: AST (SGOT) 52 U/L (5-34)
[2021-09-18 22:44] LABS: ALT (SGPT) 51 U/L (8-55); Magnesium 2.1 mg/dL (1.6-2.6)
[2021-09-18 22:47] LABS: Troponin I 0.033 ng/mL (< 0.028)
[2021-09-18 23:12] LABS: Anion Gap 16 mmol/L (10-20)
[2021-09-18] MEDS ORDERED: DOBUTamine 500 mg/250 ml 250 ML IVPB SCH (23:15)
[2021-09-19 00:05] VITALS: BP 136/82
[2021-09-19] MEDS: Benzonatate 100 MG CAP PO PRN ×2 (04:01→21:07)
[2021-09-19 04:54] LABS: Anion Gap 13 mmol/L (10-20); BUN (Urea Nitrogen) 13 mg/dL (8.9-20.6); CK (CPK) 947 U/L (30-200); Calc. Creatinine Clearance 220 mL/min (70-130); Calcium 8.8 mg/dL (7.8-10.44); Carbon Dioxide 32 mmol/L (22-29); Chloride 98 mmol/L (98-107); Glucose 140 mg/dL (70-105); Magnesium 1.9 mg/dL (1.6-2.6); Potassium 4.1 mmol/L (3.5-5.1); Sodium 139 mmol/L (136-145)
[2021-09-19] MEDS: Enoxaparin Sodium 40 MG/0.4 ML SYRINGE SC SCH ×2 (08:04→21:05)
[2021-09-19] MEDS: Furosemide 40 MG/4 ML VIAL SLOW IVP SCH (08:04)
[2021-09-19] MEDS: Zinc Sulfate 220 MG CAP PO SCH (08:04)
[2021-09-19] MEDS: Ascorbic Acid 500 mg Chewable Tablet PO SCH (08:04)
[2021-09-19] MEDS ORDERED: FLU VACC QS2021-22(6MOS UP)/PF 60 MCG/0.5 ML SYRINGE IM ONE (09:00)
[2021-09-19] MEDS ORDERED: Lisinopril 2.5 MG TAB PO SCH (09:00)
[2021-09-20] MEDS: Benzonatate 100 MG CAP PO PRN (03:34)
[2021-09-20 06:46] VITALS: TEMP 97.5
[2021-09-20] MEDS: Ascorbic Acid 500 mg Chewable Tablet PO SCH (08:08)
[2021-09-20] MEDS: Zinc Sulfate 220 MG CAP PO SCH (08:09)
[2021-09-20] MEDS: Enoxaparin Sodium 40 MG/0.4 ML SYRINGE SC SCH (08:09)
[2021-09-20] MEDS: Furosemide 40 MG/4 ML VIAL SLOW IVP SCH (08:09)
== END 2021-09-20 18:22 | disposition home or self-care (01) | DRG 871 ==
LOC: ERS 23:11 → CCU 09-16 01:41 → IMCU/EMU 09-17 17:59 → 2SW 09-18 14:25 → IMCU/EMU 09-19 02:22
PROVIDERS: ADMIT Internal Medicine; ATTEND Internal Medicine
PROC: 8E0ZXY6 Isolation (ICD-10-PCS; principal; 2021-09-16)
PROC: 3E0333Z Introduction of Anti-inflammatory into Peripheral Vein, Percutaneous Approach (ICD-10-PCS; 2021-09-16)
PROC: XW033E5 Introduction of Remdesivir Anti-infective into Peripheral Vein, Percutaneous Approach, New Technology Group 5 (ICD-10-PCS; 2021-09-16)
PROC: 5A09357 Assistance with Respiratory Ventilation, Less than 24 Consecutive Hours, Continuous Positive Airway Pressure (ICD-10-PCS; 2021-09-16)
PROC: XW0DXM6 Introduction of Baricitinib into Mouth and Pharynx, External Approach, New Technology Group 6 (ICD-10-PCS; 2021-09-18)
DX: A41.89 Other specified sepsis (principal); J96.01 Acute respiratory failure with hypoxia; U07.1 COVID-19; J12.82 Pneumonia due to coronavirus disease 2019; I50.23 Acute on chronic systolic (congestive) heart failure; N17.9 Acute kidney failure, unspecified; E87.1 Hypo-osmolality and hyponatremia; G93.40 Encephalopathy, unspecified; E87.2 Acidosis; I47.1 Supraventricular tachycardia; Z68.41 Body mass index [BMI] 40.0-44.9, adult; I42.0 Dilated cardiomyopathy; J44.0 Chronic obstructive pulmonary disease with (acute) lower respiratory infection; E78.5 Hyperlipidemia, unspecified; E78.00 Pure hypercholesterolemia, unspecified; F17.210 Nicotine dependence, cigarettes, uncomplicated; G47.33 Obstructive sleep apnea (adult) (pediatric); E66.01 Morbid (severe) obesity due to excess calories; F32.A Depression, unspecified; E11.21 Type 2 diabetes mellitus with diabetic nephropathy; E86.1 Hypovolemia; I11.0 Hypertensive heart disease with heart failure; D64.9 Anemia, unspecified; I44.1 Atrioventricular block, second degree; I49.5 Sick sinus syndrome; I27.20 Pulmonary hypertension, unspecified; Z79.4 Long term (current) use of insulin; Z79.51 Long term (current) use of inhaled steroids; Z79.899 Other long term (current) drug therapy
CPT/HCPCS: 36415; 36416; 36600; 71045; 76770; 80048; 80053; 80076; 80306; 81001; 82550; 82553; 82570; 82728; 82805; 83540; 83550; 83605; 83735; 83880; 83930; 83935; 84100; 84156; 84300; 84484; 84540; 85025; 85379; 86140; 93005; 93010; 93306; 94660; J1100; J1250; J1650; J1815; J1940; J2916; J7050

== ENCOUNTER 2021-12-25 19:00 | Outpatient (CLI) | payer BC | END 2021-12-25 19:01 | disposition home or self-care (01) | LOC: SLEEPLAB 19:00 | PROVIDERS: ATTEND Family Medicine | DX: G47.33 Obstructive sleep apnea (adult) (pediatric) (principal); R53.83 Other fatigue; R06.83 Snoring; I11.0 Hypertensive heart disease with heart failure; I50.9 Heart failure, unspecified; E11.9 Type 2 diabetes mellitus without complications; G47.00 Insomnia, unspecified; G47.10 Hypersomnia, unspecified; I49.9 Cardiac arrhythmia, unspecified; E66.9 Obesity, unspecified; Z68.42 Body mass index [BMI] 45.0-49.9, adult | CPT/HCPCS: 95811 ==

== ENCOUNTER 2023-10-25 20:34 | Inpatient (IN) | payer BC ==
[2023-10-26 02:52] VITALS: BMI 41.8
[2023-10-26] MEDS ORDERED: HumaLOG 300 UNITS/3 ML VIAL SC PRN (02:52)
[2023-10-26] MEDS ORDERED: Glucagon 1 MG/ML KIT IM PRN (02:52)
[2023-10-26] MEDS ORDERED: Ondansetron PF 4 MG/2 ML Vial IVP PRN (02:52)
[2023-10-26] MEDS ORDERED: Nitroglycerin 0.4 MG TAB (25 Tab Bottle) SL PRN (02:52)
[2023-10-26] MEDS ORDERED: Ondansetron ODT 4 MG TAB PO PRN (02:52)
[2023-10-26] MEDS ORDERED: Dextrose 5% in Water 1,000 ML IV PRN (02:52)
[2023-10-26] MEDS ORDERED: Dextrose 50% Abboject 50 ML SYRINGE SLOW IVP PRN (02:52)
[2023-10-26 06:07] LABS: #Eosinphils 0.2 thou/uL (0.0-0.7); #Monocytes 0.6 thou/uL (0.11-0.59); #Neutrophils 5.2 thou/uL (1.40-6.50); %Basophils 0.6 % (0.0-1.0); %Eosinophils 3.4 % (0.0-10.0); %Lymphocytes 14.5 % (21.0-51.0); %Monocytes 8.7 % (0.0-10.0); %Neutrophils 72.2 % (42.0-75.0); Hematocrit 32.7 % (42.0-52.0); Hemoglobin 9.6 g/dL (14.0-18.0); Mean Corpuscular HGB CONC 29.4 g/dL (32.0-36.0); Mean Corpuscular Hemoglobin 20.1 pg (27.0-31.0); Mean Corpuscular Volume 68.4 fl (78.0-98.0); Mean Platelet Volume 9.4 fL (7.4-10.4); Platelet Count 308 10x3/uL (130-400); RBC Distribution Width 19.6 % (11.5-14.5); Red Blood Cell (RBC) Count 4.78 mill/uL (4.70-6.10); White Blood Cell (WBC) Count 7.1 10x3/uL (4.8-10.8)
[2023-10-26 06:17] LABS: Hemoglobin A1c 11.9 % (4.0-6.0)
[2023-10-26 06:28] LABS: Anion Gap 15 mmol/L (10-20); BUN (Urea Nitrogen) 18 mg/dL (8.9-20.6); Calc. Creatinine Clearance 136 mL/min (70-130); Calcium 8.7 mg/dL (7.8-10.44); Carbon Dioxide 25 mmol/L (22-29); Chloride 99 mmol/L (98-107); Estimated GFR 68; Glucose 233 mg/dL (70-105); Iron 18 ug/dL (65-175); Iron Binding Capacity, Total 338 mcg/dL (261-462); Magnesium 1.8 mg/dL (1.6-2.6); Sodium 135 mmol/L (136-145)
[2023-10-26 06:30] LABS: Iron 21 ug/dL (65-175); Iron Binding Capacity, Total 335 mcg/dL (261-462)
[2023-10-26] MEDS: Ipratropium Bromide 2.5 ml Neb NEB SCH ×3 (08:17→19:37)
[2023-10-26] MEDS: Aspirin Chewable 81 MG TAB PO SCH (10:55)
[2023-10-26] MEDS: buPROPion HCl 100 MG TAB PO SCH ×2 (10:55→20:04)
[2023-10-26] MEDS: Insulin Glargine 30 UNITS/0.3 ML VIAL SC SCH (10:56)
[2023-10-26] MEDS: Enoxaparin 30 MG (0.3 mL) SYRINGE SC SCH ×2 (10:57→23:21)
[2023-10-26] MEDS: Enoxaparin 100 MG (1 mL) SYRINGE SC SCH ×2 (10:58→23:21)
[2023-10-26] MEDS: HumaLOG 300 UNITS/3 ML VIAL SC PRN (14:07)
[2023-10-26] MEDS ORDERED: Amiodarone 450 MG, Admixture Fee 1 EACH in Dextrose 5% in Water 250 ML IVPB SCH (16:00)
[2023-10-26] MEDS: Simvastatin 10 MG TAB PO SCH (20:04)
[2023-10-27] MEDS: Ipratropium Bromide 2.5 ml Neb NEB SCH ×4 (00:32→19:50)
[2023-10-27] MEDS: HumaLOG 300 UNITS/3 ML VIAL SC PRN ×2 (07:11→12:55)
[2023-10-27 07:24] LABS: Hematocrit 35.1 % (42.0-52.0); Hemoglobin 10.1 g/dL (14.0-18.0); Platelet Count 288 10x3/uL (130-400)
[2023-10-27] MEDS: buPROPion HCl 100 MG TAB PO SCH ×2 (08:49→21:35)
[2023-10-27] MEDS: Torsemide 20 MG TAB PO SCH (08:50)
[2023-10-27] MEDS: Aspirin Chewable 81 MG TAB PO SCH (08:50)
[2023-10-27] MEDS: Insulin Glargine 30 UNITS/0.3 ML VIAL SC SCH (08:50)
[2023-10-27] MEDS: Enoxaparin 30 MG (0.3 mL) SYRINGE SC SCH (10:53)
[2023-10-27] MEDS: Enoxaparin 100 MG (1 mL) SYRINGE SC SCH (10:53)
[2023-10-27] MEDS: Simvastatin 10 MG TAB PO SCH (21:36)
[2023-10-28] MEDS: Ipratropium Bromide 2.5 ml Neb NEB SCH ×5 (01:08→23:21)
[2023-10-28] MEDS: buPROPion HCl 100 MG TAB PO SCH ×2 (08:58→20:10)
[2023-10-28] MEDS: Insulin Glargine 30 UNITS/0.3 ML VIAL SC SCH (08:59)
[2023-10-28] MEDS: Aspirin Chewable 81 MG TAB PO SCH (08:59)
[2023-10-28] MEDS: Torsemide 20 MG TAB PO SCH (08:59)
[2023-10-28] MEDS: HumaLOG 300 UNITS/3 ML VIAL SC PRN (11:59)
[2023-10-28] MEDS: Simvastatin 10 MG TAB PO SCH (20:10)
[2023-10-29 06:59] LABS: #Eosinphils 0.3 thou/uL (0.0-0.7); #Monocytes 0.6 thou/uL (0.11-0.59); #Neutrophils 4.2 thou/uL (1.40-6.50); %Basophils 0.7 % (0.0-1.0); %Eosinophils 4.3 % (0.0-10.0); %Lymphocytes 15.1 % (21.0-51.0); %Monocytes 9.4 % (0.0-10.0); Hematocrit 35.6 % (42.0-52.0); Hemoglobin 10.1 g/dL (14.0-18.0); Mean Corpuscular HGB CONC 28.4 g/dL (32.0-36.0); Mean Corpuscular Hemoglobin 19.4 pg (27.0-31.0); Mean Corpuscular Volume 68.5 fl (78.0-98.0); Mean Platelet Volume 9.1 fL (7.4-10.4); Platelet Count 286 10x3/uL (130-400); RBC Distribution Width 20.4 % (11.5-14.5)
[2023-10-29] MEDS: Ipratropium Bromide 2.5 ml Neb NEB SCH ×4 (07:16→23:16)
[2023-10-29 07:25] LABS: ALT (SGPT) 32 U/L (8-55); AST (SGOT) 21 U/L (5-34); Alkaline Phosphatase 66 U/L (40-110); Anion Gap 15 mmol/L (10-20); BUN (Urea Nitrogen) 18 mg/dL (8.9-20.6); Bilirubin, Total 1.1 mg/dL (0.2-1.2); Calc. Creatinine Clearance 133 mL/min (70-130); Calcium 8.9 mg/dL (7.8-10.44); Carbon Dioxide 28 mmol/L (22-29); Chloride 95 mmol/L (98-107); Estimated GFR 68; Globulin 3.1 g/dL (2.4-3.5); Glucose 197 mg/dL (70-105); Potassium 3.8 mmol/L (3.5-5.1); Protein, Total 7.1 g/dL (6.0-8.3); Sodium 134 mmol/L (136-145)
[2023-10-29] MEDS: Insulin Glargine 30 UNITS/0.3 ML VIAL SC SCH (08:18)
[2023-10-29] MEDS: Aspirin Chewable 81 MG TAB PO SCH (08:18)
[2023-10-29] MEDS: buPROPion HCl 100 MG TAB PO SCH ×2 (08:18→21:20)
[2023-10-29] MEDS: Torsemide 20 MG TAB PO SCH (08:18)
[2023-10-29 08:26] LABS: Hypochromia SLIGHT = 6-15 cells (100X) (0-5/hpf); Ovalocytes SLIGHT = 2-5 cells (100X) (0-1/hpf); Polychromasia SLIGHT = 2-3 cells (100X) (0-2/hpf)
[2023-10-29] MEDS: HumaLOG 300 UNITS/3 ML VIAL SC PRN (18:04)
[2023-10-29] MEDS: Simvastatin 10 MG TAB PO SCH (21:19)
[2023-10-29] MEDS: Enoxaparin 100 MG (1 mL) SYRINGE SC SCH (21:20)
[2023-10-29] MEDS: Enoxaparin 30 MG (0.3 mL) SYRINGE SC SCH (21:21)
[2023-10-30] MEDS: Ipratropium Bromide 2.5 ml Neb NEB SCH ×3 (07:36→21:35)
[2023-10-30] MEDS: Torsemide 20 MG TAB PO SCH (10:00)
[2023-10-30] MEDS: Aspirin Chewable 81 MG TAB PO SCH (10:00)
[2023-10-30] MEDS: buPROPion HCl 100 MG TAB PO SCH ×2 (10:02→21:38)
[2023-10-30 11:44] LABS: Anion Gap 15 mmol/L (10-20); BUN (Urea Nitrogen) 17 mg/dL (8.9-20.6); Calc. Creatinine Clearance 121 mL/min (70-130); Calcium 9.2 mg/dL (7.8-10.44); Carbon Dioxide 27 mmol/L (22-29); Chloride 96 mmol/L (98-107); Estimated GFR 61; Glucose 192 mg/dL (70-105); Potassium 4.3 mmol/L (3.5-5.1); Sodium 134 mmol/L (136-145)
[2023-10-30] MEDS ORDERED: PROPOFOL 200 MG/20 ML VIAL ONE (12:28)
[2023-10-30] MEDS ORDERED: Lidocaine 1% PF 5 ML VIAL ONE (12:28)
[2023-10-30] MEDS: Insulin Glargine 30 UNITS/0.3 ML VIAL SC SCH (13:31)
[2023-10-30] MEDS: Enoxaparin 100 MG (1 mL) SYRINGE SC SCH (13:32)
[2023-10-30] MEDS: Enoxaparin 30 MG (0.3 mL) SYRINGE SC SCH (13:32)
[2023-10-30] MEDS: Dronedarone HCl 400 MG TAB PO SCH (16:25)
[2023-10-30] MEDS: Apixaban 5 MG TAB PO SCH (21:36)
[2023-10-30] MEDS: Simvastatin 10 MG TAB PO SCH (21:38)
[2023-10-31] MEDS: Ipratropium Bromide 2.5 ml Neb NEB SCH ×2 (02:15→08:11)
[2023-10-31] MEDS: Insulin Glargine 30 UNITS/0.3 ML VIAL SC SCH (08:52)
[2023-10-31] MEDS: Apixaban 5 MG TAB PO SCH (08:52)
[2023-10-31] MEDS: Aspirin Chewable 81 MG TAB PO SCH (08:53)
[2023-10-31] MEDS: Torsemide 20 MG TAB PO SCH (08:53)
[2023-10-31] MEDS: Dronedarone HCl 400 MG TAB PO SCH (08:56)
[2023-10-31] MEDS: buPROPion HCl 100 MG TAB PO SCH (09:01)
[2023-10-31 12:13] VITALS: BP 126/55; TEMP 98.6
== END 2023-10-31 14:18 | disposition home or self-care (01) | DRG 308 ==
LOC: 2SW 10-26 01:58 → OBSVTOIN 10-26 11:40
PROVIDERS: ADMIT Internal Medicine; ATTEND Internal Medicine
PROC: 5A09357 Assistance with Respiratory Ventilation, Less than 24 Consecutive Hours, Continuous Positive Airway Pressure (ICD-10-PCS; 2023-10-26)
PROC: B244ZZ4 Ultrasonography of Right Heart, Transesophageal (ICD-10-PCS; principal; 2023-10-30)
PROC: 5A2204Z Restoration of Cardiac Rhythm, Single (ICD-10-PCS; 2023-10-30)
DX: I48.92 Unspecified atrial flutter (principal); I50.33 Acute on chronic diastolic (congestive) heart failure; I13.0 Hypertensive heart and chronic kidney disease with heart failure and stage 1 through stage 4 chronic kidney disease, or unspecified chronic kidney disease; Z68.41 Body mass index [BMI] 40.0-44.9, adult; I42.0 Dilated cardiomyopathy; J44.9 Chronic obstructive pulmonary disease, unspecified; I45.10 Unspecified right bundle-branch block; I95.9 Hypotension, unspecified; E11.65 Type 2 diabetes mellitus with hyperglycemia; D50.9 Iron deficiency anemia, unspecified; N18.9 Chronic kidney disease, unspecified; I35.8 Other nonrheumatic aortic valve disorders; E11.22 Type 2 diabetes mellitus with diabetic chronic kidney disease; I44.1 Atrioventricular block, second degree; G47.33 Obstructive sleep apnea (adult) (pediatric); E66.01 Morbid (severe) obesity due to excess calories; Z79.4 Long term (current) use of insulin; Z88.1 Allergy status to other antibiotic agents; Z79.82 Long term (current) use of aspirin; Z79.2 Long term (current) use of antibiotics; Z79.899 Other long term (current) drug therapy; Z87.891 Personal history of nicotine dependence; Z99.89 Dependence on other enabling machines and devices; Z86.16 Personal history of COVID-19; Z71.84 Encounter for health counseling related to travel; Z79.01 Long term (current) use of anticoagulants
CPT/HCPCS: 36415; 36416; 80048; 80053; 82565; 82728; 83036; 83540; 83550; 83735; 84484; 85014; 85018; 85025; 85049; 92960; 93005; 93010; 93306; 93312; 94640; 94660; 96372; G0378; J0282; J1650; J1815; J2704; J7070

== ENCOUNTER 2024-05-31 06:01 | Day surgery (SDC) | payer BC ==
[2024-05-28 15:20] VITALS: BMI 43.4
[2024-05-31] MEDS ORDERED: Heparin 10,000 UNITS/ 10 ML VIAL ONE (06:34)
[2024-05-31 06:58] LABS: #Basophils 0.04 10x3/uL (0.0-0.2); %Basophils 0.7 % (0.0-1.0); %Lymphocytes 15.9 % (21.0-51.0); %Monocytes 10.5 % (0.0-10.0); %Neutrophils 68.4 % (42.0-75.0); Hematocrit 34.5 % (42.0-52.0); Hemoglobin 9.6 g/dL (14.0-18.0); Mean Corpuscular HGB CONC 27.8 g/dL (32.0-36.0); Mean Corpuscular Hemoglobin 17.5 pg (27.0-31.0); Mean Corpuscular Volume 62.7 fL (78.0-98.0); Mean Platelet Volume 8.9 fL (7.4-10.4); Platelet Count 320 10x3/uL (130-400); RBC Distribution Width 22.3 % (11.5-14.5)
[2024-05-31 07:06] LABS: Prothrombin Time 12.9 sec (12.0-14.7)
[2024-05-31 07:07] LABS: PTT 28.2 sec (22.9-36.1)
[2024-05-31 07:26] LABS: Anion Gap 15 mmol/L (10-20); BUN (Urea Nitrogen) 8 mg/dL (8.9-20.6); Calc. Creatinine Clearance 201 mL/min (70-130); Calcium 9.4 mg/dL (7.8-10.44); Carbon Dioxide 24 mmol/L (22-29); Chloride 100 mmol/L (98-107); Estimated GFR 106; Glucose 179 mg/dL (70-105); Potassium 4.1 mmol/L (3.5-5.1); Sodium 135 mmol/L (136-145)
[2024-05-31 07:40] LABS: Hypochromia SLIGHT = 6-15 cells HPF (0-5); Platelet Adequacy Comment Platelets Normal; Polychromasia SLIGHT = 2-3 cells HPF (0-2)
[2024-05-31] MEDS ORDERED: Isoproterenol 0.2 MG/1 ML AMP ONE (08:42)
[2024-05-31] MEDS ORDERED: Lidocaine 1% PF 5 ML VIAL ONE (09:02)
[2024-05-31] MEDS ORDERED: NEOSTIGMINE 3 MG/3 ML SYRINGE ONE (09:02)
[2024-05-31] MEDS ORDERED: Rocuronium Bromide 10 MG/ML (10ML VIAL) ONE (09:02)
[2024-05-31] MEDS ORDERED: Glycopyrrolate 0.2 MG/ML 5 ML SYRINGE ONE (09:02)
[2024-05-31] MEDS ORDERED: ePHEDrine Sulfate 50 MG/10 ML VIAL ONE (09:02)
[2024-05-31] MEDS ORDERED: PROPOFOL 200 MG/20 ML VIAL ONE (09:02)
[2024-05-31] MEDS ORDERED: Phenylephrine 40 MG/NS 250 ML 250 ML ONE (09:51)
[2024-05-31] MEDS ORDERED: DOBUTamine 250 MG/20 ML VIAL ONE (10:46)
[2024-05-31] MEDS ORDERED: DOPamine 400 MG/D5W 250 ML 250 ML ONE (10:47)
== END 2024-05-31 15:50 | disposition home or self-care (01) ==
LOC: SDC 06:01
PROVIDERS: ATTEND Internal Medicine Cardiovascular Disease
PROC: 02583ZZ Destruction of Conduction Mechanism, Percutaneous Approach (ICD-10-PCS; principal; 2024-05-31)
DX: I48.3 Typical atrial flutter (principal); I48.0 Paroxysmal atrial fibrillation; I42.8 Other cardiomyopathies; I45.10 Unspecified right bundle-branch block; G47.30 Sleep apnea, unspecified; E66.9 Obesity, unspecified; Z68.41 Body mass index [BMI] 40.0-44.9, adult; Z79.01 Long term (current) use of anticoagulants; Z79.82 Long term (current) use of aspirin; Z79.899 Other long term (current) drug therapy
CPT/HCPCS: 36416; 80048; 85025; 85610; 85730; 93005; 93623; 93653; 94660; C1730; C1732; C1760; C1894; J1250; J1265; J1644; J2704